=== PATIENT | female | born 1985 | race Caucasian/White ===

== ENCOUNTER → 2017-04-09 12:03 | Outpatient (CLI) | payer OTHER, SELFPAY ==
[2017-03-23 08:38] VITALS: BMI 21.1
--- NOTE | 2017-04-09 12:15 | HPBI_ITS ---
MAMMOGRAPHY - BILATERAL DIAGNOSTIC REASON FOR EXAM: Female, 31 years old. 2 year history of bilateral nipple discharge. PERTINENT HISTORY: Non-contributory. TECHNIQUE: Digital bilateral breast jacqueline (3D mammographic acquisition) in the CC and MLO projections. 2-D mediolateral oblique (MLO) and craniocaudad (CC) views of both breasts were obtained. CAD: Full Field Digital Mammography with Computer Added Detection was performed. COMPARISON: None. Baseline examination. FINDINGS: Breast Composition: The breasts are extremely dense, which lowers the sensitivity of mammography. There are no dominant masses or suspicious calcifications. No other significant abnormalities are identified. HPBI/DIAG MAMM W/CAD, BILAT IMPRESSION: Negative diagnostic mammogram. With the patient's history of bilateral breast discharge, ultrasound correlation is recommended. ASSESSMENT CATEGORY: BIRADS Category 0: Incomplete. Need additional imaging evaluation. A letter regarding these results will be sent to the patient by the facility within 30 days. Approximately 10% of breast cancers are not detected by mammography. A normal mammogram should not delay biopsy of a clinically suspicious abnormality. Electronically Signed: Elton Reeder MD at 13:14 EST Tel [phone], Service support ,
--- NOTE | 2017-04-09 13:30 | US_ITS ---
STUDY: ULTRASOUND BREAST - RIGHT REASON FOR EXAM: Female, 31 years old. Bilateral nipple discharge. TECHNIQUE: Axial and longitudinal images of the RIGHT breast were performed with a high resolution ultrasound transducer. COMPARISON: Comparison is made with prior mammogram done earlier today. FINDINGS: RIGHT Breast: There is a mild degree of retroareolar ductal dilatation. IMPRESSION: Mild degree of retroareolar ductal dilatation. ASSESSMENT CATEGORY: BIRADS Category 2: Benign. A letter regarding these results will be sent to the patient by the facility within 30 days. Electronically Signed: Elton Reeder MD at 14:16 EST Tel [phone], Service support , STUDY: ULTRASOUND BREAST - LEFT REASON FOR EXAM: Female, 31 years old. Bilateral breast discharge. TECHNIQUE: Axial and longitudinal images of the LEFT breast were performed with a high resolution ultrasound transducer. COMPARISON: Comparison is made with prior mammogram done earlier in the day. FINDINGS: LEFT Breast: Mild degree of retroareolar ductal dilatation. US/Breast Limited Unilateral IMPRESSION: Mild degree of the retroareolar ductal dilatation. ASSESSMENT CATEGORY: BIRADS Category 2: Benign. A letter regarding these results will be sent to the patient by the facility within 30 days. Electronically Signed: Elton Reeder MD at 14:16 EST Tel [phone], Service support ,
== END ==
PROVIDERS: Family Provider Family Medicine; PCP Family Medicine; Visit Provider Obstetrics & Gynecology
DX: O92.6 Galactorrhea (principal)
CPT/HCPCS: 76642; 77062; 77066; G0279

== ENCOUNTER → 2018-04-14 13:22 | Outpatient (CLI) | payer OTHER, SELFPAY ==
[2018-04-14 13:21] VITALS: BMI 21.1
[2018-04-14 14:38] LABS: Prolactin 19.6 ng/mL
[2018-04-14 14:54] LABS: Rubella IgG 70.2 IU/mL
== END ==
PROVIDERS: Family Provider Family Medicine; PCP Family Medicine; Referring Provider Obstetrics & Gynecology; Visit Provider Obstetrics & Gynecology
DX: N64.3 Galactorrhea not associated with childbirth (principal)
CPT/HCPCS: 36415; 84146; 86762

== ENCOUNTER → 2018-06-06 18:19 | Outpatient (CLI) | payer OTHER, SELFPAY ==
[2018-06-06 14:19] VITALS: BMI 21.1
[2018-06-09 15:43] LABS: HPV APTIMA, High Risk Negative (Negative)
== END ==
PROVIDERS: Family Provider Family Medicine; PCP Family Medicine; Referring Provider Obstetrics & Gynecology; Visit Provider Obstetrics & Gynecology
DX: Z12.4 Encounter for screening for malignant neoplasm of cervix (principal)
CPT/HCPCS: 87624; 88175; G0145

== ENCOUNTER → 2019-02-09 14:38 | Outpatient (CLI) | payer OTHER, SELFPAY ==
[2019-02-09 09:19] VITALS: BMI 21.1
[2019-02-09 21:27] LABS: Chlamydia Trachomatis by PCR Negative (Negative); Neisserai gonorrhoeae by PCR Negative (Negative); Probe Check PASS; Sample Adequacy Control PASS; Specimen Processing Control PASS
== END ==
PROVIDERS: Family Provider Family Medicine; PCP Family Medicine; Visit Provider Obstetrics & Gynecology
DX: Z34.90 Encounter for supervision of normal pregnancy, unspecified, unspecified trimester (principal)
CPT/HCPCS: 87086; 87491; 87591

== ENCOUNTER → 2019-02-21 11:02 | Outpatient (CLI) | payer OTHER, SELFPAY ==
[2019-02-09 09:19] VITALS: BMI 21.1
[2019-02-21 11:37] LABS: Absolute Lymphocyte Count 2.06 X10^3/uL (0.83-4.51); Absolute Neutrophil Count 6.4 X10^3/uL (2.0-7.7); Basophil# 0.02 X10^3/uL; Basophil% 0.2 % (0-1); Eosinophil# 0.05 X10^3/uL; Eosinophils% 0.6 % (0-5); Hematocrit 39.4 % (37-47); Hemoglobin 13.5 g/dL (12.0-15.0); Lymphocyte # 2.06 X10^3/ul (4.0); Lymphocyte % 22.8 % (19-41); Mean Corp Hgb Conc 34.3 g/dL (32-36); Mean Corpuscular Hgb 32.3 pg (27.0-32.0); Mean Corpuscular Volume 94.3 fL (81-99); Mean Platelet Vol. 9.6 fl (6.2-12.0); Monocyte# 0.51 X10^3/uL; Monocyte% 5.7 % (0-10); NRBC Flagged by Analyzer 0 % (0-5); Neutrophil # 6.35 X10^3/uL (2.7-7.7); Neutrophil % 70.4 % (47-70); Platelet Count 215 K/mm3 (150-450); RBC Distribution Width CV 12.5 % (11.6-14.6); RBC Distribution Width SD 43.8 fl (35.1-43.9); Red Blood Count 4.18 M/mm3 (4.2-5.4)
[2019-02-21 14:25] LABS: HIV - WCH Non-Reactive (Nonreactive); Hepatitis B Surface Antigen Non-Reactive (Nonreactive); Rubella IgG 59.8 IU/mL
[2019-02-23 00:56] LABS: Rapid Plasmin Reagin (RPR) NONREACTIVE (NONREACTIVE)
== END ==
PROVIDERS: Family Provider Family Medicine; PCP Family Medicine; Referring Provider Obstetrics & Gynecology; Visit Provider Obstetrics & Gynecology
DX: Z34.81 Encounter for supervision of other normal pregnancy, first trimester (principal)
CPT/HCPCS: 36415; 85025; 86592; 86703; 86762; 86850; 86900; 86901; 87340

== ENCOUNTER → 2019-06-23 09:57 | Outpatient (CLI) | payer OTHER, SELFPAY ==
[2019-06-01 14:31] VITALS: BMI 26.2
[2019-06-23 10:19] LABS: Absolute Lymphocyte Count 1.78 X10^3/uL (0.83-4.51); Absolute Neutrophil Count 8.6 X10^3/uL (2.0-7.7); Basophil# 0.02 X10^3/uL; Basophil% 0.2 % (0-1); Eosinophil# 0.03 X10^3/uL; Eosinophils% 0.3 % (0-5); Hematocrit 39.3 % (37-47); Lymphocyte # 1.78 X10^3/ul (4.0); Lymphocyte % 16.1 % (19-41); Mean Corp Hgb Conc 33.1 g/dL (32-36); Mean Corpuscular Hgb 33.4 pg (27.0-32.0); Mean Platelet Vol. 10.3 fl (6.2-12.0); Monocyte# 0.57 X10^3/uL; Monocyte% 5.2 % (0-10); NRBC Flagged by Analyzer 0 % (0-5); Neutrophil # 8.59 X10^3/uL (2.7-7.7); Neutrophil % 77.6 % (47-70); Platelet Count 182 K/mm3 (150-450); RBC Distribution Width CV 13.2 % (11.6-14.6); RBC Distribution Width SD 48.6 fl (35.1-43.9); Red Blood Count 3.89 M/mm3 (4.2-5.4); White Blood Count 11.1 K/mm3 (4.4-11.0)
[2019-06-23 10:26] LABS: Glucose Challenge Gest 1H 50g 115 mg/dL (70-140)
== END ==
PROVIDERS: PCP Family Medicine; Referring Provider Obstetrics & Gynecology; Visit Provider Obstetrics & Gynecology
DX: Z34.90 Encounter for supervision of normal pregnancy, unspecified, unspecified trimester (principal)
CPT/HCPCS: 36415; 82950; 85025

== ENCOUNTER → 2019-08-18 15:14 | Outpatient (CLI) | payer OTHER, SELFPAY ==
[2019-08-18 08:47] VITALS: BMI 21.1
== END ==
PROVIDERS: PCP Family Medicine; Referring Provider Obstetrics & Gynecology; Visit Provider Obstetrics & Gynecology
DX: Z3A.36 36 weeks gestation of pregnancy (principal)
CPT/HCPCS: 87081

== ENCOUNTER 2019-09-13 11:00 | Inpatient (IN) | payer OTHER, SELFPAY ==
[2019-06-23 10:43] VITALS: BMI 26.6
[2019-09-08 10:47] VITALS: BMI 21.1
[2019-09-13] VITALS (37 sets, daily range): BP systolic 88–125; BP diastolic 54–80; PULSE 73–109; TEMP 36.7–37.9; O2SAT 97–99; BMI 28.3
[2019-09-13] MEDS: Lactated Ringers 1,000 ML 50 ML IV (11:20)
[2019-09-13 11:30] LABS: Absolute Lymphocyte Count 2.32 X10^3/uL (0.83-4.51); Absolute Neutrophil Count 8.4 X10^3/uL (2.0-7.7); Basophil# 0.02 X10^3/uL; Basophil% 0.2 % (0-1); Eosinophil# 0.03 X10^3/uL; Eosinophils% 0.3 % (0-5); Hematocrit 44.5 % (37-47); Hemoglobin 15.2 g/dL (12.0-15.0); Lymphocyte # 2.32 X10^3/ul (4.0); Lymphocyte % 20.3 % (19-41); Mean Corp Hgb Conc 34.2 g/dL (32-36); Mean Corpuscular Hgb 34.2 pg (27.0-32.0); Mean Platelet Vol. 11.3 fl (6.2-12.0); Monocyte# 0.64 X10^3/uL; Monocyte% 5.6 % (0-10); NRBC Flagged by Analyzer 0 % (0-5); Neutrophil # 8.38 X10^3/uL (2.7-7.7); Neutrophil % 73.2 % (47-70); Platelet Count 143 K/mm3 (150-450); RBC Distribution Width CV 13.1 % (11.6-14.6); RBC Distribution Width SD 47.5 fl (35.1-43.9); Red Blood Count 4.45 M/mm3 (4.2-5.4); White Blood Count 11.4 K/mm3 (4.4-11.0)
[2019-09-13] MEDS: Lactated Ringers 500 ML 999 ML IV (16:15)
[2019-09-13] MEDS: fentaNYL-bupivacaine (epidural) 100 ML BAG EPIDURAL ×2 (17:32→21:41)
[2019-09-13] MEDS: Lactated Ringers 1,000 ML 200 ML IV ×2 (18:54→23:02)
--- NOTE | 2019-09-13 19:13 | PCM.HP.OB ---
- Problem List (1) Status: Acute Qualifiers: Comment: nipt low risk, carrier declined. afp declined. MFM Anatomy US normal (2) Supervision of normal Status: Acute Qualifiers: Comment: PRR DESTIN 09/10/19 boy Kasie Mohan (3) Vaginal bleeding Status: Acute History Date of Admission: 09/13/19 Final DESTIN: 09/10/19 Gestational age: 40 Weeks and 3 Days History of this : This is a 33 year-old, , at 40 weeks gestational age presents IAL with vaginal bleeding, made cervical change.she has had an uncomplicated Medical History: Medical History (Last Reviewed 09/08/19 @ 10:47 by Indira Montes) Anxiety F41.9 Surgical History: Surgical History (Last Reviewed 09/08/19 @ 10:47 by Indira Montes) History of wisdom tooth extraction, class II edentulism K08.492 Allergies amoxicillin Allergy (Mild, Verified 09/08/19 10:47) Other Home Medications: Home Medications vitamin#30 30 mg iron-10 mg iron-folic acid 1 mg-omg3 capsule cap PO cap 02/09/19 Smoking Status: Never smoker NST - FHR Rate Baby A Baseline: 140 Variability:: Moderate Accelerations:: 15 x 15 Decelerations:: None NST Reactive:: Yes FHR Category:: Category I Uterine Activity:: q 3-4 History Past Pregnancies: Past Pregnancies Delivery Date Name GA/ Weeks Outcome Route Wt Sex Labor Length Anesthesia Delivery Location Provider FOB Labs: Mom's Labs & Results 09/13/19 09/13/19 09/13/19 11:20 11:20 11:20 WBC 11.4 H RBC 4.45 Hgb 15.2 H Hct 44.5 MCV 100.0 H MCH 34.2 H MCHC 34.2 RDW Std Deviation 47.5 H RDW Coeff of Mahendra 13.1 Plt Count 143 L MPV 11.3 Immature Gran % (Auto) 0.400 Neut % (Auto) 73.2 H Lymph % (Auto) 20.3 Ward % (Auto) 5.6 Eos % (Auto) 0.3 Baso % (Auto) 0.2 Absolute Neuts (auto) 8.4 H Absolute Lymphs (auto) 2.32 Nucleated RBC % 0 COVID-19 (DYLAN) Not Detected Blood Type A POSITIVE Antibody Screen NEGATIVE Course Did the patient receive Yes care? Labs Blood Type: A RH: POSITIVE RPR/VDRL/Syphilis Nonreactive Rubella status Immune HbSAg Negative Date Done: 02/21/19 Chlamydia Negative Gonorrhea Negative HIV/AIDS Non-Reactive Group B Strep: Negative Current Obstetrical History Gestational Diabetes No Incompetent Cervix No Infertility No IUGR No Macrosomia No Hypertension/Pre-eclampsia No Placenta Previa/Abruption No PTL/PROM No Uterine anomaly No Oligohydramnios No Polyhydramnios No Multiple gestation No Past Medical History Asthma No Diabetes No Hypertension No Heart disease No Mitral valve prolapse No Neurologic/Seizure disorder/ No Migraines Kidney disease No Liver disease No Varicosities No Clotting disorders/Hx of DVT No Thyroid Dysfunction No Other medical diseases No Psychiatric disorders No Major trauma No Abnormal PAP smear No Sleep apnea No Mammogram in the last 2 years Yes Social History Marital Status: Alleged father Mohan Hx Smoking No Smoking Status Never smoker Expected Delivery Method: Spontaneous Vaginal Review of Systems Constitutional: Denies: Fever, Malaise Eyes: Denies: Blurred vision, Vision Change HEENT: Denies: Head Aches, Visual Changes Cardiovascular: Denies: Chest Pain, Palpitations Respiratory: Denies: Cough, Shortness of Breath, Wheezing Gastrointestinal: Denies: Abdominal Pain, Diarrhea, Nausea, Vomiting Genitourinary: Denies: Dysuria, Hematuria Musculoskeletal: Denies: Joint Pain, Muscle pain Skin: Denies: Lesions, Rash Neurological: Denies: Blurred vision, Focal weakness, Headaches Psychiatric: Denies: Anxiety, Depression Endocrine: Denies: Heat/ Cold Intolerance Hematologic/ Lymphatic: Denies: Easy Bruising, Easy Bleeding Physical Exam Vitals: Vital Signs Temp Pulse BP Pulse Ox 98.8 F 84 102/60 99 09/13/19 18:31 09/13/19 18:32 09/13/19 18:32 09/13/19 18:31 General: Alert, Cooperative, No apparent distress HEENT: Atraumatic, Normocephalic. Negative for: Thyromegaly, Lymphadenopathy Cardiovascular: Regular rate Lungs: Normal air movement Abdomen: Soft, Non Tender, Gravid Neurological: Deep Tendon Reflexes 2+/4 and Symmetrical, Neuro grossly intact. Negative for: Clonus REMODELER: Normal external genitalia. Negative for: Vulvar lesions Estimated gestational size: Appropriate for gestational size Presentation: Cephalic Cervix Dilation (cm): 4 Station: -1 Effacement (%): 80 Assessment/Plan All Active Problems (Last Reviewed 09/08/19 @ 10:47 by Indira Montes) Vaginal bleeding (Acute) (Acute) Supervision of normal (Acute) Adnexal mass (Resolved) Galactorrhea (Resolved) This is a 33 year-old, at 40 weeks gestational age presents IAL. Patient presents IAL, plan expectant management for , pitocin/AROM if needed. Pain management: Plans epidural. GBS neg. Management of any complications: None I have reviewed the [facility] and made any clinically relevant updates.
[2019-09-14] VITALS (25 sets, daily range): BP systolic 102–137; BP diastolic 51–79; PULSE 86–100; RESP 16; TEMP 36.7–37.8; O2SAT 93–99
--- NOTE | 2019-09-14 01:23 | PN_ITS ---
Progress Note Patient comfortable, 9 cm, sitting up in Chair current tracing: FHT: 130 Moderate variability reactive no decelerations category I tracing [place]: Q. 2-4 contractions reviewed tracing abnormalities since last note: No significant or repetitive decelerations A/P: Continue expectant management STROKE Vital Signs/Narrative: Vital Signs Temp Pulse BP Pulse Ox 09/14/19 00:16 92 118/59 L 09/13/19 23:59 96 88/54 L 09/13/19 23:58 98.7 F 98 09/13/19 22:48 99.2 F H 102 H 100/56 L 97 09/13/19 21:40 98.1 F 90 101/73 98
[2019-09-14] MEDS: fentaNYL-bupivacaine (epidural) 100 ML BAG EPIDURAL (01:48)
--- NOTE | 2019-09-14 02:25 | OP.PCM_ITS ---
Problem List (1) Status: Acute Qualifiers: Comment: nipt low risk, carrier declined. afp declined. MFM Anatomy US normal (2) Supervision of normal Status: Acute Qualifiers: Comment: PRR DESTIN 09/10/19 boy Kasie Mohan (3) Vaginal bleeding Status: Acute Vaginal Delivery Maternal Presentation: Active Labor 33-year-old G1, P0 at 40 weeks 3 days presents in active labor with vaginal bleeding Amniotic Membrane Rupture Type: Artificial Amniotic Fluid Description: Clear Final DESTIN: 09/10/19 Gestational age: 40 Weeks and 4 Days Date of Procedure: 09/14/19 Pre-Operative Diagnosis: Active labor Post-Operative Diagnosis: Same Surgery/ Procedure Performed: Spontaneous Vaginal Delivery Type of Anesthesia: Epidural Description of Procedure: Patient began pushing and delivered the head in the [ANNY] presentation. The head was delivered atraumatically [and a loose nuchal cord ?1 was identified and easily reduced over the 's head]. The anterior and posterior shoulders delivered without complication followed by the rest of the infant and the infant was placed on the maternal abdomen. Delayed cord clamping was employed for approximately 60 seconds. Cord was clamped and cut and gentle traction was applied to the cord and the placenta delivered spontaneously immediately following it was noted to be intact with three-vessel cord. The perineum and vagina were inspected and noted to have a second-degree perineal laceration that was repaired in the usual fashion with 3-0 Vicryl Rapide. EBL was 300 cc. Patient and tolerated delivery well. Placental Delivery Description: Spontaneous Placenta Disposition: [facility] Cord Vessel Description: 3 Vessels Cord Entanglement: Around neck x 1, loose Estimated Blood Loss: 300 Infant A gender: Male Episiotomy Description: None Laceration: Perineal Extension/lac, 2nd degree Medications given after delivery: IV Pitocin Complications: None Multi Select Codes - Urinary/Genital Urinary/Genital CPT Codes: 01788 Vaginal Delivery [facility]
[2019-09-14] MEDS: Lactated Ringers 1,000 ML 200 ML IV (03:59)
[2019-09-14] MEDS: Oxytocin 30 units/NS 500 ml 30 UNITS/500 ML IV.SOLN 334 UNITS IV (04:30)
[2019-09-14] MEDS: 0.9% Saline Lock 10 ML Syringe IV (06:56)
--- NOTE | 2019-09-14 07:30 | NURSING ---
[place] cut near delivery by dr opzo. 300 cc clear, yellow urine present in bag.
[2019-09-14] MEDS: Senna/Docusate Sodium 1 Tablet PO (14:16)
[2019-09-14] MEDS: Naproxen 250 MG Tablet 500 MG PO (17:35)
--- NOTE | 2019-09-14 17:45 | CASEMGMT ---
Social Work Labor and Delivery unit Social work consult received and noted. Chart reviewed. Maternal history of anxiety. Her mother baby is a first-time mother who delivered a baby today 09/14/2019. Plan: We will plan to see baby on 09/15/2019 for assessment, support, and provision resources. -TOBIAS Burnett, PLASTIC PANEL INSTALLER
[2019-09-15] VITALS (8 sets, daily range): BP systolic 100–116; BP diastolic 66–73; PULSE 77–90; RESP 16; TEMP 36.4–36.7; O2SAT 96–98
--- NOTE | 2019-09-15 09:36 | DCINST_ITS ---
Discharge Diet: No Restrictions Discharge Activity: Return to Normal Activity, May not drive while taking narcotic pain medications., May Shower May resume sexual activity in: 4-6 weeks Call your doctor if your incision/area has: Continuous Slow Oozing, Sudden Increased Bleeding, Increased Pain/ Swelling, Increased Redness, Foul Smelling Discharge Additional Instructions: If you experience any of the following, contact your healthcare provider. * Bleeding that soaks a pad every hour for 2 hours * Fever 100.4 or higher * Unrelieved incision or abdominal pain * Swelling, redness, discharge or bleeding from your incision or episiotomy site * Your incision begins to separate * Problems urinating (including inability to urinate or burning while urinating). * Visual changes * Severe headache * Flu-like symptoms * Pain or redness in one of both of your breasts * Pain, warmth, tenderness or swelling in your legs, especially the calf area * Frequent nausea and vomiting * Symptoms of depression or anxiety If you experience any of the following, call 911 or go to the nearest Emergency Room. * Chest pain * Problems breathing * Seizure activity * Partial or complete paralysis of a body part, slurred speech, weakness or drooping of the face, or a sudden inability to walk or hold your balance Allergies/Adverse Reactions: Allergies amoxicillin Allergy (Mild, Verified 09/08/19 10:47) Other Medications to take at Discharge vitamin#30 30 mg iron-10 mg iron-folic acid 1 mg-omg3 capsule cap PO cap 02/09/19 Please Follow Up With: Adela Snell MD - [phone] When: Call to make an appointment with your doctor in 6 weeks. If you had elevated Blood pressure or 4th degree laceration you will need to be seen in 2 weeks. Primary Care Physician: Anuja Curtis DO [Primary Care Provider] - Test Results: Test results from this visit will be discussed in further detail at your follow- up appointment, if applicable.
--- NOTE | 2019-09-15 09:36 | PCM.PN.OB ---
Patient Problems: Active and Suspected Problems (Last Reviewed 09/08/19 @ 10:47 by Indira Montes) Vaginal bleeding (Acute) Subjective: doing well no complaints pain controlled no CP SOB N V ambulating well tolerating po lochia moderate, going well - Physical Exam Vitals/I&O's: Vital Signs Temp Pulse Resp BP Pulse Ox 97.8 F 90 16 102/66 97 09/15/19 09:15 09/15/19 09:15 09/15/19 09:15 09/15/19 09:15 09/15/19 09:15 Oxygen Delivery Method Room Air Weight: 165 lb Body Mass Index (BMI) 28.3 Intake and Output for Last 24 Hours 09/13/19 09/14/19 09/15/19 23:59 23:59 23:59 Intake Total 1985.83 / 1985.83 2866.54 / 2866.54 Output Total 250 / 250 2700 / 2700 Balance 1735.83 / 1735.83 166.54 / 166.54 Current Medications Acetaminophen (Tylenol) 1,000 mg PO Q8H PRN PRN PRN Reason: Pain Score 1-3/10 Bisacodyl (Dulcolax) 10 mg RECTAL UD PRN PRN Reason: If no BM Dibucaine (Dibucaine) 1 applic TOPICAL TID PRN PRN; Protocol PRN Reason: Discomfort Hydrocortisone (Hytone) 1 applic TOPICAL TID PRN PRN; Protocol PRN Reason: Discomfort Methylergonovine Maleate (Methergine) 0.2 mg IM X1 PRN PRN Reason: Excess bleeding/uterine atony Naproxen (Naprosyn) 500 mg PO Q8H PRN PRN PRN Reason: Pain Score 1-3/10 Last Admin: 09/14/19 17:35 Dose: 500 mg Documented by: Ondansetron HCl (Zofran) 4 mg IV Q4H PRN PRN PRN Reason: Nausea Oxycodone HCl (Oxyir) 5 - 10 mg PO Q4H PRN PRN PRN Reason: Pain Score 4-10/10 Senna/Docusate Sodium (Senokot-S, Janie-Colace) 1 - 2 tablet PO DAILY PRN PRN PRN Reason: Constipation Last Admin: 09/14/19 14:16 Dose: 1 tablet Documented by: Simethicone (Mylicon) 80 mg PO PCHS PRN PRN Reason: Indigestion/Stomach pain Sodium Chloride () 5 - 15 ml IV UD PRN PRN Reason: SALINE FLUSH Last Admin: 09/14/19 06:56 Dose: 10 ml Documented by: Medical Necessity - Tobacco Use Smoking Status: Never smoker Assessment/Plan All Active Problems (Last Reviewed 09/08/19 @ 10:47 by Indira Montes) Vaginal bleeding (Acute) (Acute) Supervision of normal (Acute) Adnexal mass (Resolved) Galactorrhea (Resolved) s/p PPD # 1 1. routine post delivery care 2. breast feeding- support given 3. rh positive 4. rubella immune
--- NOTE | 2019-09-15 09:36 | PCM.DCVAG ---
Discharge Diet: No Restrictions Discharge Activity: Return to Normal Activity, May not drive while taking narcotic pain medications., May Shower May resume sexual activity in: 4-6 weeks Call your doctor if your incision/area has: Continuous Slow Oozing, Sudden Increased Bleeding, Increased Pain/ Swelling, Increased Redness, Foul Smelling Discharge Additional Instructions: If you experience any of the following, contact your healthcare provider. Bleeding that soaks a pad every hour for 2 hours Fever 100.4 or higher Unrelieved incision or abdominal pain Swelling, redness, discharge or bleeding from your incision or episiotomy site Your incision begins to separate Problems urinating (including inability to urinate or burning while urinating). Visual changes Severe headache Flu-like symptoms Pain or redness in one of both of your breasts Pain, warmth, tenderness or swelling in your legs, especially the calf area Frequent nausea and vomiting Symptoms of depression or anxiety If you experience any of the following, call 911 or go to the nearest Emergency Room. Chest pain Problems breathing Seizure activity Partial or complete paralysis of a body part, slurred speech, weakness or drooping of the face, or a sudden inability to walk or hold your balance Allergies/Adverse Reactions: Allergies amoxicillin Allergy (Mild, Verified 09/08/19 10:47) Other Medications to take at Discharge vitamin#30 30 mg iron-10 mg iron-folic acid 1 mg-omg3 capsule cap PO cap 02/09/19 Please Follow Up With: Adela Snell MD - [phone] When: Call to make an appointment with your doctor in 6 weeks. If you had elevated Blood pressure or 4th degree laceration you will need to be seen in 2 weeks. Primary Care Physician: Anuja Curtis DO [Primary Care Provider] - Test Results: Test results from this visit will be discussed in further detail at your follow-up appointment, if applicable.
--- NOTE | 2019-09-15 14:44 | CASEMGMT ---
Social Work Met with patient to follow up on hx of anxiety. Pt very open about past anxiety and reported to utilizing counseling prior, and finding it very beneficial to discuss feelings and get thoughts in order. Pt expressed recognizing any depression or anxiety to return to counseling. Discussed PPD/A not only affecting MOB but FOB as well. Provided resources for PPD/A, safe sleep, shaken baby, etc. Pt stated she was never on meds but PRN Xanax for travel. 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 Despite new job, pt is able to have full maternity leave and will return in the fall. /FOB has full-time job as well and is taking about 2 weeks paternity leave. Pt reports to no issues financially. Pt states has all equipment/needs for taking baby home. FOB: no issues reported. Great relationship. Safe at home. Support: Pt reports to having a family in town, both MOB and FOB parents are very involved and will be eager to assist as needed. Also well as family to assist. Provided resources for PPD/A, safe sleep, shaken baby, etc. Educated to continued assistance if needed. Pt expressed no issues, questions or concerns. Pt very pleasant, happy, friendly, and excited to go home and begin parenthood. CALIXTO MoserW
--- NOTE | 2019-09-19 12:19 | NURSING ---
Mother doing well on follow up phone call. Baby nursing well. Really like Misti Merritt
== END 2019-09-15 16:25 | disposition home or self-care (01) | DRG 807 ==
LOC: OBT 11:03 → WP 11:03
PROVIDERS: Admitting Provider Obstetrics & Gynecology; PCP Family Medicine; Referring Provider Obstetrics & Gynecology; Visit Provider Obstetrics & Gynecology
DX: O67.9 Intrapartum hemorrhage, unspecified (principal); O69.81X0 Labor and delivery complicated by cord around neck, without compression, not applicable or unspecified; O70.1 Second degree perineal laceration during delivery; Z3A.40 40 weeks gestation of pregnancy; Z37.0 Single live birth
CPT/HCPCS: 59025; 59050; 85025; 86850; 86900; 86901; 87635; 99218; G2023; J7120; A4216; G0378; U0003

== ENCOUNTER → 2019-09-29 16:26 | Outpatient (CLI) | payer OTHER, SELFPAY ==
[2019-09-29 14:12] VITALS: BMI 28.3
== END ==
PROVIDERS: PCP Family Medicine; Referring Provider Obstetrics & Gynecology; Visit Provider Obstetrics & Gynecology
DX: N39.0 Urinary tract infection, site not specified (principal)
CPT/HCPCS: 87086; 87088

== ENCOUNTER → 2021-09-04 | Outpatient (CLI) | payer OTHER, SELFPAY ==
[2021-09-04 13:56] LABS: hCG Titer Quant., Serum < 1 mIU/mL (1-3)
== END | disposition home or self-care (01) ==
LOC: LAB 12:55
PROVIDERS: Referring Provider Nurse Practitioner Women's Health; Visit Provider Nurse Practitioner Women's Health
DX: N91.2 Amenorrhea, unspecified (principal)
CPT/HCPCS: 36415; 84702

== ENCOUNTER → 2021-10-14 | Outpatient (CLI) | payer OTHER, SELFPAY ==
[2021-10-14 09:48] LABS: Prolactin 7.3 ng/mL; Thyroid Stim Hormone (TSH) 1.29 uIU/mL (0.358-3.74)
[2021-10-14 10:08] LABS: NATERA MAILED SPECIMEN
[2021-10-21 14:09] LABS: Testosterone, % Free 1.61 % (0.50-2.80); Testosterone, Total 6 ng/dL (8-60)
[2021-10-22 18:02] LABS: DHEA Sulfate 76.7 ug/dL (57.3-279.2)
== END | disposition home or self-care (01) ==
LOC: PAVLAB 08:30
PROVIDERS: Referring Provider Obstetrics & Gynecology; Visit Provider Obstetrics & Gynecology
DX: N92.6 Irregular menstruation, unspecified (principal)
CPT/HCPCS: 36415; 82627; 84146; 84402; 84403; 84443; 82626

== ENCOUNTER → 2021-10-27 | Outpatient (CLI) | payer OTHER, SELFPAY ==
--- NOTE | 2021-10-27 16:04 | US_ITS ---
STUDY: ULTRASOUND OF THE FEMALE PELVIS - COMPLETE REASON FOR EXAM: Female, 36 years old. irregular menses LMP: TECHNIQUE: TECHNICAL QUALITY: Adequate. COMPARISON: None. FINDINGS: The uterus is anteverted and is in a midline position. The uterus measures 8.3 x 5.2 x 4.1 cm. Normal uterine cervix. The endometrium measures 5.6 mm in thickness, and is . There is no demonstrated endometrial mass. There is no demonstrated myometrial mass. I.U.D. - The patient does not have an I.U.D. The right ovary is visualized. The right ovary measures 3.8 x 2.7 x 2.8 cm. cm. There is a simple cyst in the right ovary 2.1 x 1.7 x 1.9 cm. Follicular cysts are seen at the periphery of the right ovary.. There is no visualized right adnexal mass or complex lesion. There is normal arterial and normal venous vascularity. The left ovary is visualized. The left ovary measures 2.7 x 2.4 x 2.4 cm with multiple peripheral follicular cysts. cm. There is no left ovarian cyst or ovarian mass. There is no visualized left adnexal mass or complex lesion. There is normal arterial and normal venous vascularity. There is no fluid in the cul-de-sac. The pre void volume of the bladder was 390 ml. The post void volume of the bladder was ml. Polycystic ovary disease: Yes. See above discussion. US/Pelvic (Non ) IMPRESSION: Multiple peripheral follicular cysts both ovaries consistent with polycystic ovarian syndrome. Simple cyst right ovary 2.1 x 1.7 x 0.9 cm. Electronically Signed: Bienvenido Duenas MD, DAX at 17:05 EDT ,
--- NOTE | 2021-10-27 16:04 | US_ITS ---
STUDY: ULTRASOUND OF THE FEMALE PELVIS - COMPLETE REASON FOR EXAM: Female, 36 years old. irregular menses LMP: TECHNIQUE: TECHNICAL QUALITY: Adequate. COMPARISON: None. FINDINGS: The uterus is anteverted and is in a midline position. The uterus measures 8.3 x 5.2 x 4.1 cm. Normal uterine cervix. The endometrium measures 5.6 mm in thickness, and is . There is no demonstrated endometrial mass. There is no demonstrated myometrial mass. I.U.D. - The patient does not have an I.U.D. The right ovary is visualized. The right ovary measures 3.8 x 2.7 x 2.8 cm. cm. There is a simple cyst in the right ovary 2.1 x 1.7 x 1.9 cm. Follicular cysts are seen at the periphery of the right ovary.. There is no visualized right adnexal mass or complex lesion. There is normal arterial and normal venous vascularity. The left ovary is visualized. The left ovary measures 2.7 x 2.4 x 2.4 cm with multiple peripheral follicular cysts. cm. There is no left ovarian cyst or ovarian mass. There is no visualized left adnexal mass or complex lesion. There is normal arterial and normal venous vascularity. There is no fluid in the cul-de-sac. The pre void volume of the bladder was 390 ml. The post void volume of the bladder was ml. Polycystic ovary disease: Yes. See above discussion. US/Transvaginal Non- IMPRESSION: Multiple peripheral follicular cysts both ovaries consistent with polycystic ovarian syndrome. Simple cyst right ovary 2.1 x 1.7 x 0.9 cm. Electronically Signed: Bienvenido Duenas MD, DAX at 17:05 EDT ,
== END | disposition home or self-care (01) ==
PROVIDERS: Visit Provider Obstetrics & Gynecology
DX: N92.6 Irregular menstruation, unspecified (principal)
CPT/HCPCS: 76830; 76856

== ENCOUNTER → 2021-12-24 | Outpatient (CLI) | payer OTHER, SELFPAY ==
[2021-12-24 11:27] LABS: hCG Titer Quant., Serum 1851 mIU/mL (1-3)
== END | disposition home or self-care (01) ==
PROVIDERS: Referring Provider Obstetrics & Gynecology; Visit Provider Obstetrics & Gynecology
DX: N91.2 Amenorrhea, unspecified (principal)
CPT/HCPCS: 36415; 84702

== ENCOUNTER → 2021-12-26 | Outpatient (CLI) | payer OTHER, SELFPAY ==
[2021-12-26 11:23] LABS: hCG Titer Quant., Serum 4090 mIU/mL (1-3)
== END | disposition home or self-care (01) ==
LOC: LAB 09:42
PROVIDERS: Referring Provider Obstetrics & Gynecology; Visit Provider Obstetrics & Gynecology
DX: N91.2 Amenorrhea, unspecified (principal)
CPT/HCPCS: 36415; 84702

== ENCOUNTER 2022-02-03 12:17 | Day surgery (SDC) | payer OTHER, SELFPAY ==
[2022-02-03] VITALS (7 sets, daily range): BP systolic 107–118; BP diastolic 70–84; PULSE 78–98; RESP 16–18; TEMP 36.7–37.7; O2SAT 96–100; BMI 22.6
[2022-02-03] MEDS: Lactated Ringers 1,000 ML 15 ML IV (13:57)
--- NOTE | 2022-02-03 14:00 | POC_PTH ---
PATIENT: MARCEL MONSALVE LOC: [facility] [place][id number] AGE/SX: 36/F ROOM: RE02/03/[address]: Dr. Sabine Perla DO : 1985 BED: DIS: 02/03/2022 SPEC #: [id number] RECD: 02/03/22 18:00 STATUS: GRAHAM SHAVON #: [id number] JEANA: 02/03/22 14:[address]: Sabine Perla DEPT: SURGICAL PATHOLOGY RECD BY: Maryanne Chin ENTERED: 02/04/22 07:49 SP TYPE: PROD CONC OTHR DR: No Primary Care Phys Tissues: Product of conception, NOS Procedures: Surgery Specimen Level IV HEADER OPERATION: Suction dilation and curettage PRE-OP DIAGNOSIS: Missed TISSUE SUBMITTED: Products of conception for Anora testing MICROSCOPIC DIAGNOSIS Products of conception: Decid[place], gestational endometrium and immature chorionic villi (products of conception), clinically missed . See comment. SJ:edmar 02/05/2022 COMMENT The results of Anora study will be reported as an addendum. MICROSCOPIC DESCRIPTION Slides are reviewed. GROSS DESCRIPTION Received fresh for Anora study labeled with the patient's name is a specimen designated products of conception. The specimen consists of multiple irregular fragments of pink soft tissue that in aggregate measure 7 x 6 x 2 cm. tissue is not identified. Lace Stripper tissue is submitted for Anora study. Lace Stripper tissue is also submitted in two cassettes. / SHARRI:edmar 02/04/2022 TC:5 CPT: 61173
[2022-02-03 14:43] LABS: Hemoglobin 13.9 g/dL (12.0-15.0); Mean Corp Hgb Conc 34.8 g/dL (32-36); Mean Corpuscular Hgb 32.9 pg (27.0-32.0); Mean Corpuscular Volume 94.6 fL (81-99); Mean Platelet Vol. 9.3 fl (6.2-12.0); Platelet Count 238 K/mm3 (150-450); RBC Distribution Width CV 12.5 % (11.6-14.6); RBC Distribution Width SD 43.5 fl (35.1-43.9); Red Blood Count 4.23 M/mm3 (4.2-5.4); White Blood Count 8.5 K/mm3 (4.4-11.0)
[2022-02-03] MEDS: Doxycycline 100 MG CAPSULE PO (16:27)
--- NOTE | 2022-02-03 16:54 | HP.PCM_ITS ---
History and Physical Date of Admission: 02/03/22 Intake Vital Signs ? 01/29/2215:00 01/29/2215:03 Height 5 ft 4 in ? Weight: 137 lb 4 oz ? BMI 23.6 ? BP 120/78 ? Intake Visit Reasons:?NOB? 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 1 mg-dha 300 mg capsule (PNV-DHA) cap PO 01/20/22 [History Confirmed 01/20/22] Last Menstrual Period: 11/19/21 Zika: Zika virus screening: Negative : No PFSH PFSH Medical History?(Updated 01/29/22 @ 16:[address] Sabine Perla, DO) Anxiety Surgical History? History of wisdom tooth extraction, class II edentulism Family History? Father Heart disease Social History? adopted:? No household members:? spouse housing:? house number of children:? 1 current occupational status:? 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 No pets and animals:? Yes pets and animals: dog(s) history of recent travel:? Yes (- November) out of state: Yes out of country: No sexually active:? Yes Smoking Status:? Never smoker alcohol intake:? never substance use type:? does not use well-balanced diet:? daily or most days caffeine:? Yes Type: coffee Number of servings: 1 eating out:? 1-3 times/week during the past year weight has:? remained stable what type of physical activity do you participate in:? none martha/quaker:? Orthodox seatbelt use:? always do you feel safe at home:? Yes additional social history:? [employer] History ? ? ? 2 ? Elective abortions ? Hx Para ? ? ? 1 ? Spontaneous abortions ? Hx # Term Pregnancies ? Ectopic pregnancies ? Hx # Pregnancies ? Multiple births ? D ? # of living children ? ? ? 1 Past Pregnancies Del. Date Name GA/Weeks Outcome Route Bth Weight Gen Labor Lgth Anesthesia Del Locatn Provider FOB 09/14/19 Kasie 40 live - full term NS VD ? Male ? ? [facility] Dr. Adela Preston Delivery Date: 09/14/19? Last Updated by: Mary Murillo ? ? ? Vaginal bleeding, IOL HPI NOB? LMP 11/19 Details: MARCEL MONSALVE is a 36 year old who presents for New OB visit. OB Visit DESTIN Calculator ? Estimated Delivery Date Method Current WG Current Estimate 08/26/22 LMP (Certain) 10w 1d Comments: HIV: Urine Culture: Sequential Screen: NIPT Screen: Estimated Due Date: 08/26/22 Menstrual History Last Menstrual Period: 11/19/21 Antepartum Record Genetic Screening: Congenital Heart Defect: Other, Neural Tube Defect: Other, Hemoglobinopathy Or Carrier: Other, Cystic Fibrosis: Other, Chromosome Abnormality: Other, Archie-Sachs: Other, Hemophilia: Other, Intellectual Disability/Autism: Other, Recurrent Loss/Stillbirth: Other, Other Structural Defect: Other, Other Genetic Disease: Other and Maternal Metabolic Disorder: Other Infection History: Live with someone with TB or Exposed to TB: No, Patient or Partner has history of Genital Herpes: No, Rash or Viral illness since last mentrual period: No, Prior GBS-Infected child: No, History of STD: No, HIV Infection: No, History of Hepatitis: No, Recent travel outside of [place]: No, Concern for hepatitis exposure: No and Varicella immune: Yes (immune) ACOG First Trimester First Trimester: Desire for , Alcohol, Tobacco Cessation, Illicit/Recreational Drug/Substance Use, Intimate Partner Violence, Barriers to care, Unstable Housing, Communication Barriers, Environmental/Work Hazards, Anticipated Course of Care, Toxoplasmosis Precations, Use of Any medications, Sexual activity, Exercise, Dental Care, Sauna/Hot tub use, Seat Belt use, Childbirth classes/Hospital facilities, Travel, Indications for Ultrasound and Screening for Aneuploidy; Discussed ROS Const All systems reviewed & are unremarkable except as noted in H Resp Reports system reviewed and no additional complaints, except as documented and Denies cough GI Reports as per HPI Psych Reports system reviewed and no additional complaints, except as documented Exam Const General: cooperative, healthy appearing, comfortable and no acute distress Resp Effort & Inspection: normal respiratory effort General: bimanual renal exam normal bilaterally External Female Exam: normal appearance of the urethra Urethra: normal appearance of the urethra Speculum Exam - Vagina: normal appearance of the vagina Speculum Exam - Cervix: normal appearance of the cervix Bimanual Exam- Adnexa, other: normal adnexae and normal Pelvic Support: normal Other: ultrasound shows a 7 week CRL without heart beat. Skin General: no rashes or lesions noted Psych Appearance: grossly normal Speech and Movement: speech and movement normal Coding Level of Care Code Off vis,est,level 4 Diagnoses Missed ? O02.1 Assessment and Plan Assessment and Plan (1) Missed : ?Status:?Acute ?Plan: pt has a 7 week missed . She would like to proceed with a D&C with Anora testing at next available opening. 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 is currently closed. After discussing the patient's diagnosis and treatment plan options, patient wishes to proceed with surgical management.? I have discussed with the patient the risks, benefits, and alternatives of the procedure which include but are not limited to risks of anesthesia, bleeding, infection, possible damage to bowel, bladder, or surrounding vasculature which could lead to additional surgery to evaluate any complications.? Patient agrees to procedure and wishes to proceed.? ACOG/uptodate references given for additional information regarding procedure.? bedside ultrasound performed prior to procedure for patient reassurance. there is a 7week 4 day pole without heart tones once again. UPDATE- I have seen the patient and performed any clinically relevant updates to the history and physical exam. Sabine Perla,
--- NOTE | 2022-02-03 16:55 | DCINST_ITS ---
Discharge Instructions Diet Discharge Diet: No restrictions Activity Discharge Activity: Return to Normal Activity, May Shower and May Take a Tub Bath (after 1 week) May resume sexual activity in: 1-2 weeks Weight Bearing Status: Weight bearing as tolerated Lifting Restrictions: none Dressing / Incision Call your doctor if you observe: Fever of 101 or Higher, Using more than 1 pad per hour, Shortness of breath and Uncontrolled pain Follow Up Care Please Follow Up With: Sabine Perla DO When: Call [phone] to schedule appointment. Test Results: Test results from this visit will be discussed in further detail at your follow- up appointment, if applicable. Discharge Plan Admission Primary Reason for Your Visit: suction dilation and curettage Attending Provider: Sabine Perla Primary Care Provider: Care Physician,Anais Primary Discharge Orders/Prescriptions Prescriptions: New oxycodone-acetaminophen [Percocet] 5-325 mg tablet 1 tab PO Q4H PRN (Reason: pain) 3 Days Qty: 10 0RF naproxen 500 mg tablet 500 mg PO BID PRN PRN (Reason: Pain) Qty: 30 0RF Continued PNV-DHA 27 mg iron-1 mg -300 mg capsule 1 cap PO DAILY Referrals / Follow Up: Care Physician,No Primary [Primary Care Provider] - Disposition Disposition (needs filled in before D/C Order can be placed): Home, Self Care
--- NOTE | 2022-02-03 17:15 | PCM.OP.BLANK ---
Problems Associated Problem List Diagnoses (1) Missed : Operative Report Date of Procedure: 02/03/22 Pre-operative diagnosis: 7week 4 day missed post-operative diagnosis: 7 week 4 day missed surgeon: Dr. Sabine Perla DO Anesthesia: mac/local ebl:50cc urine output: 100cc Procedure details: Patient was taken to the operating room and placed under MAC local anesthesia. She was prepped and draped in the normal sterile fashion the dorsal lithotomy position. Bladder was drained of clear urine and anterior lip of the cervix was grasped and the uterus sounded to 10cm. Cervix was progressively dilated to allow passage of a 7 curved suction curette. Progressive passes were made removing the retained products of conception without complication. Sharp curettage confirmed complete removal of the retained products. All instruments were removed from the vagina and excellent hemostasis was noted and the patient was taken to recovery in stable condition. Multi Select Codes Urinary/Genital Urinary/Genital CPT Codes: 55259 Surg Trtmt missed Ab 1TM
[2022-02-03] MEDS: Lidocaine 1% (20 ml mdv) 20 ML Vial (17:40)
== END 2022-02-03 19:22 | disposition home or self-care (01) ==
LOC: SDC 12:18 → AC 12:20
PROVIDERS: Obstetrics & Gynecology; Referring Provider Obstetrics & Gynecology; Visit Provider Obstetrics & Gynecology
PROC: (CPT 59820; principal; 2022-02-03 13:45)
DX: O02.1 Missed abortion (principal)
CPT/HCPCS: 59820; 01965; 85027; 86850; 86900; 86901; 88305; J7120; J2405

== ENCOUNTER → 2022-05-13 | Outpatient (CLI) | payer OTHER, SELFPAY ==
[2022-05-13 16:45] LABS: hCG Titer Quant., Serum 2024 mIU/mL (1-3)
== END | disposition home or self-care (01) ==
LOC: LAB 13:37
PROVIDERS: Referring Provider Obstetrics & Gynecology; Visit Provider Obstetrics & Gynecology
DX: O09.90 Supervision of high risk pregnancy, unspecified, unspecified trimester (principal); Z87.59 Personal history of other complications of pregnancy, childbirth and the puerperium
CPT/HCPCS: 36415; 84702

== ENCOUNTER → 2022-05-15 | Outpatient (CLI) | payer OTHER, SELFPAY ==
[2022-05-15 11:05] LABS: hCG Titer Quant., Serum 4350 mIU/mL (1-3)
== END | disposition home or self-care (01) ==
LOC: LAB 09:54
PROVIDERS: Referring Provider Obstetrics & Gynecology; Visit Provider Obstetrics & Gynecology
DX: O09.90 Supervision of high risk pregnancy, unspecified, unspecified trimester (principal); Z87.59 Personal history of other complications of pregnancy, childbirth and the puerperium
CPT/HCPCS: 36415; 84702

== ENCOUNTER → 2022-05-20 | Outpatient (CLI) | payer OTHER, SELFPAY ==
--- NOTE | 2022-05-20 10:03 | US_ITS ---
STUDY: FIRST TRIMESTER OBSTETRICAL ULTRASOUND REASON FOR EXAM: Female, 36 years old viability -- Please schedule early next week() -- LMP 04/05/2022 LMP: April 05, 2022. TECHNIQUE: Transvaginal TECHNICAL QUALITY: Adequate. PRIOR ULTRASOUND: None. FINDINGS: There is visualization of a single gestational sac in a normal intrauterine position. The mean sac diameter (MSD) measures 13 mm, indicating an estimated gestational age (EGA) of 6 weeks, 1 days. The gestational sac shape is within normal limits. There is a visualized yolk sac. The yolk sac measures 3 mm. The placenta is non-visualized. There is no demonstrated embryo ( pole). The estimated gestation age (EGA) by LMP is 6 weeks, 3 days. The estimated date of delivery (DESTIN) by LMP is January 10, 2023.. The estimated gestation age (EGA) by US is 6 weeks, 1 days. The estimated date of delivery (DESTIN) by US is January 12, 2023. The uterus measures 9.9 cm x 6.9 cm x 4.7 cm. There is no demonstrated uterine fibroid. The cervix is closed. The right ovary measures 4.2 cm x 4.1 cm x 3.1 cm. A right ovarian cyst is seen measuring 2 cm x 1.6 cm x 1.9 cm. There is no visualized right adnexal mass or complex lesion. The left ovary measures 2.7 cm x 2.7 cm x 1.8 cm. There is no left ovarian cyst. There is no visualized left adnexal mass or complex lesion. There is no fluid in the cul de sac. US/Transvaginal w/Preg US IMPRESSION: Intrauterine gestational sac suggestive of a 6 week 1 day gestation. Follow-up is recommended. Electronically Signed: Elton Reeder MD at 14:01 EDT ,
== END | disposition home or self-care (01) ==
LOC: US 10:03
PROVIDERS: Referring Provider Obstetrics & Gynecology; Visit Provider Obstetrics & Gynecology
DX: O36.80X0 Pregnancy with inconclusive fetal viability, not applicable or unspecified (principal); Z87.59 Personal history of other complications of pregnancy, childbirth and the puerperium
CPT/HCPCS: 76817

== ENCOUNTER → 2022-05-27 | Outpatient (CLI) | payer OTHER, SELFPAY ==
--- NOTE | 2022-05-27 15:16 | US_ITS ---
INDICATION: viability EXAMINATION: Ultrasound US OB Transvaginal TECHNIQUE: Transabdominal pelvic ultrasound was performed. Grayscale, spectral waveform, and color flow Doppler evaluation of the adnexa. COMPARISON: May 20, 2022. LMP: [04/05/2022 correlating with 7 weeks 3 days gestation and estimated delivery date January 10, 2023 Beta-hCG: Unknown FINDINGS: UTERUS: Anteverted 10.5 x 7.3 x 6.0 cm with unremarkable myometrium. Single fundal gestational sac normal shape and qualitatively normal amniotic fluid. No evidence of subchorionic hemorrhage. Placenta not yet developed due to early gestational age. Single mildly irregular 5 mm yolk sac. Single pole. 0.69 cm correlating with 6 weeks 5 days gestation and estimated delivery date January 15, 2023. heart rate 123 bpm. RIGHT OVARY: 4.0 x 2.9 x 2.9 cm with 2.1 cm anechoic luteal cyst and color vascular flow.. LEFT OVARY: 2.8 x 1.9 x 2.0 cm. Normal parenchymal appearance and color vascular flow.. FREE FLUID: None. US/Transvaginal w/Preg US IMPRESSION: Single live intrauterine with normal heart rate. Estimated gestational age is concordant with provided dating. Electronically Signed: Ganga Kulkarni MD at 8:16 EDT ,
== END | disposition home or self-care (01) ==
LOC: US 15:15
PROVIDERS: Referring Provider Obstetrics & Gynecology; Visit Provider Obstetrics & Gynecology
DX: O36.80X0 Pregnancy with inconclusive fetal viability, not applicable or unspecified (principal); Z87.59 Personal history of other complications of pregnancy, childbirth and the puerperium
CPT/HCPCS: 76817

== ENCOUNTER → 2022-05-28 | Outpatient (CLI) | payer OTHER, SELFPAY ==
[2022-06-01 06:06] LABS: Chlamydia By Nucleic Acid AMP Negative (Negative)
[2022-06-02 11:11] LABS: Gonococcus By Nucleic Acid AMP Negative (Negative)
== END | disposition home or self-care (01) ==
LOC: LABSPEC 13:00
PROVIDERS: Referring Provider Obstetrics & Gynecology; Visit Provider Obstetrics & Gynecology
DX: O09.521 Supervision of elderly multigravida, first trimester (principal)
CPT/HCPCS: 87086; 87491; 87591

== ENCOUNTER → 2022-06-01 | Outpatient (CLI) | payer OTHER, SELFPAY | END | disposition home or self-care (01) | LOC: LAB 14:52 | PROVIDERS: Obstetrics & Gynecology; Referring Provider Obstetrics & Gynecology; Visit Provider Obstetrics & Gynecology | DX: O20.0 Threatened abortion (principal) | CPT/HCPCS: 36415; 84702 ==

== ENCOUNTER → 2022-06-03 | Outpatient (CLI) | payer OTHER, SELFPAY ==
--- NOTE | 2022-06-03 07:58 | US_ITS ---
STUDY: FIRST TRIMESTER OBSTETRICAL ULTRASOUND REASON FOR EXAM: Female, 36 years old threatened LMP: April 05, 2022 TECHNIQUE: Transvaginal TECHNICAL QUALITY: Adequate. PRIOR ULTRASOUND: Comparison is made with prior examination dated May 27, 2022. FINDINGS: There is visualization of a single gestational sac in a normal intrauterine position. The mean sac diameter (MSD) measures 2.92 cm, indicating an estimated gestational age (EGA) of 8 weeks, 0 days. The gestational sac shape is within normal limits. There is a visualized yolk sac. The yolk sac measures 4.4 mm. The placenta is non-visualized. There is visualization of a live embryo. The crown-rump length (CRL) measures 1.43 cm, indicating an estimated gestational age (EGA) of 7 weeks, 5 days. There is demonstrated cardiac activity with a heart rate of 152 bpm. The estimated gestation age (EGA) by LMP is 8 weeks, 3 days. The estimated date of delivery (DESTIN) by LMP is January 10, 2023. The estimated gestation age (EGA) by US is 7 weeks, 6 days. The estimated date of delivery (DESTIN) by US is January 14, 2023. The uterus measures 11.9 cm x 5.7 cm x 8.3 cm. There is no demonstrated uterine fibroid. The cervix is closed. The right ovary measures 3.5 cm x 3.2 cm x 3.2 cm. There is a 2.1 cm x 1.9 cm by 1.7 cm cyst. There is no visualized right adnexal mass or complex lesion. The left ovary measures 3.1 cm x 2.2 cm x 2.1 cm. There is no left ovarian cyst. There is no visualized left adnexal mass or complex lesion. There is no fluid in the cul de sac. US/Transvaginal w/Preg US IMPRESSION: Single live intrauterine gestation with a mean gestational age of 7 weeks and 6 days. 2.1 cm x 1.9 cm x 1.7 cm right ovarian cyst. Electronically Signed: Elton Reeder MD at 9:07 EDT ,
[2022-06-03 09:04] LABS: hCG Titer Quant., Serum 105992 mIU/mL (1-3)
== END | disposition home or self-care (01) ==
PROVIDERS: Referring Provider Obstetrics & Gynecology; Visit Provider Obstetrics & Gynecology
DX: O20.0 Threatened abortion (principal)
CPT/HCPCS: 36415; 76817; 84702

== ENCOUNTER → 2022-06-19 | Outpatient (CLI) | payer OTHER, SELFPAY ==
[2022-06-19 15:06] LABS: Absolute Lymphocyte Count 2.49 X10^3/uL (0.83-4.51); Basophil# 0.02 X10^3/uL; Basophil% 0.2 % (0-1); Eosinophil# 0.06 X10^3/uL; Eosinophils% 0.6 % (0-5); Hematocrit 37.9 % (37-47); Hemoglobin 12.9 g/dL (12.0-15.0); Lymphocyte # 2.49 X10^3/ul (0.83-4.51); Lymphocyte % 24.7 % (19-41); Mean Corpuscular Hgb 32.1 pg (27.0-32.0); Mean Corpuscular Volume 94.3 fL (81-99); Mean Platelet Vol. 9.8 fl (6.2-12.0); Monocyte# 0.55 X10^3/uL; Monocyte% 5.4 % (0-10); NRBC Flagged by Analyzer 0 % (0-5); Neutrophil # 6.96 X10^3/uL (2.7-7.7); Neutrophil % 68.9 % (47-70); Platelet Count 210 K/mm3 (150-450); RBC Distribution Width CV 12.5 % (11.6-14.6); Red Blood Count 4.02 M/mm3 (4.2-5.4); White Blood Count 10.1 K/mm3 (4.4-11.0)
[2022-06-19 15:45] LABS: NATERA MAILED SPECIMEN
[2022-06-19 16:59] LABS: HIV - WCH Non-Reactive (Nonreactive); Hepatitis B Surface Antigen Non-Reactive (Nonreactive); Hepatitis C Antibody Non-Reactive (Nonreactive); Rubella IgG Reactive (Nonreactive); Syphilis Antibodies Non-reactive
== END | disposition home or self-care (01) ==
LOC: LAB 14:39
PROVIDERS: Referring Provider Obstetrics & Gynecology; Visit Provider Obstetrics & Gynecology
DX: O09.521 Supervision of elderly multigravida, first trimester (principal)
CPT/HCPCS: 36415; 85025; 86703; 86762; 86780; 86803; 86850; 86900; 86901; 87340

== ENCOUNTER → 2022-10-26 | Outpatient (CLI) | payer OTHER, SELFPAY ==
[2022-10-26 09:00] LABS: Absolute Lymphocyte Count 1.55 X10^3/uL (0.83-4.51); Absolute Neutrophil Count 8.4 X10^3/uL (2.0-7.7); Basophil# 0.02 X10^3/uL; Basophil% 0.2 % (0-1); Eosinophil# 0.05 X10^3/uL; Eosinophils% 0.5 % (0-5); Hematocrit 36.6 % (37-47); Lymphocyte # 1.55 X10^3/ul (0.83-4.51); Lymphocyte % 14.7 % (19-41); Mean Corp Hgb Conc 32.8 g/dL (32-36); Mean Corpuscular Volume 103.7 fL (81-99); Mean Platelet Vol. 10.2 fl (6.2-12.0); Monocyte# 0.48 X10^3/uL; Monocyte% 4.5 % (0-10); NRBC Flagged by Analyzer 0 % (0-5); Neutrophil # 8.39 X10^3/uL (2.7-7.7); Neutrophil % 79.4 % (47-70); Platelet Count 181 K/mm3 (150-450); RBC Distribution Width CV 13.8 % (11.6-14.6); RBC Distribution Width SD 52.5 fl (35.1-43.9); Red Blood Count 3.53 M/mm3 (4.2-5.4); White Blood Count 10.6 K/mm3 (4.4-11.0)
[2022-10-26 09:07] LABS: Glucose Challenge Gest 1H 50g 115 mg/dL (70-140)
[2022-10-26 13:22] LABS: HIV - WCH Non-Reactive (Nonreactive); Syphilis Antibodies Non-reactive
== END | disposition home or self-care (01) ==
LOC: PAVLAB 08:31
PROVIDERS: Referring Provider Registered Nurse; Visit Provider Registered Nurse
DX: O09.521 Supervision of elderly multigravida, first trimester (principal); Z3A.00 Weeks of gestation of pregnancy not specified
CPT/HCPCS: 36415; 82950; 85025; 86703; 86780

== ENCOUNTER → 2022-12-18 | Outpatient (CLI) | payer OTHER, SELFPAY ==
--- NOTE | 2022-12-18 14:24 | US_ITS ---
EXAM: US , LIMITED CLINICAL INDICATION: growth -- 36 weeks TECHNIQUE: Real-time limited ultrasound of the maternal uterus with image documentation. COMPARISON: No relevant prior studies available. FINDINGS: FETUS: Single fetus. GESTATIONAL AGE: Estimated gestational age by measurements is 36 weeks 2 days. Clinical gestational age is 36 weeks. DESTIN: Clinical DESTIN is January 15, 2023. EFW: Estimated weight is 3224 g. BPD: Biparietal diameter is 9.0 cm. HC: Head circumference is 32.2 cm. AC: Abdominal circumference is 34.2 cm. FL: Femur length is 7.1 cm. POSITION: Cephalic presentation. HEART RATE: cardiac rate 145 bpm. PLACENTA: Anterior placenta with grade 1-2 acute change. AMNIOTIC FLUID: Amniotic fluid index is 23.6 cm. US/OB Limited With Biometrics IMPRESSION: Single live 36 week intrauterine gestation with normal interval growth. Borderline polyhydramnios. Electronically Signed: Paul Taylor MD at 16:12 EDT ,
== END | disposition home or self-care (01) ==
LOC: OPUS 14:22
PROVIDERS: Referring Provider Obstetrics & Gynecology; Visit Provider Obstetrics & Gynecology
DX: O09.523 Supervision of elderly multigravida, third trimester (principal); Z3A.36 36 weeks gestation of pregnancy
CPT/HCPCS: 76816

== ENCOUNTER → 2022-12-21 | Outpatient (CLI) | payer OTHER, SELFPAY | END | disposition home or self-care (01) | LOC: LABSPEC 17:12 | PROVIDERS: Referring Provider Obstetrics & Gynecology; Visit Provider Obstetrics & Gynecology | DX: O09.521 Supervision of elderly multigravida, first trimester (principal); Z3A.00 Weeks of gestation of pregnancy not specified | CPT/HCPCS: 87081 ==

== ENCOUNTER → 2022-12-22 | Outpatient (CLI) | payer OTHER, SELFPAY ==
[2022-12-22 11:43] LABS: Glucose Challenge Gest 1H 50g 173 mg/dL (70-140)
[2022-12-22 12:20] LABS: hCG Titer Quant., Serum 17342 mIU/mL (1-3)
== END | disposition home or self-care (01) ==
PROVIDERS: Referring Provider Obstetrics & Gynecology; Visit Provider Obstetrics & Gynecology
DX: O41.93X0 Disorder of amniotic fluid and membranes, unspecified, third trimester, not applicable or unspecified (principal); Z3A.00 Weeks of gestation of pregnancy not specified; Z87.59 Personal history of other complications of pregnancy, childbirth and the puerperium
CPT/HCPCS: 36415; 82950; 84702

== ENCOUNTER → 2023-01-04 | Outpatient (CLI) | payer OTHER, SELFPAY ==
--- NOTE | 2023-01-04 12:26 | US_ITS ---
STUDY: SECOND AND THIRD TRIMESTER OBSTETRICAL ULTRASOUND - LIMITED REASON FOR EXAM: Female, 37 years old ZAIDA -- ZAIDA only LMP: April 10, 2022. PRIOR ULTRASOUND: Comparison is made with prior study dated December 18, 2022. TECHNIQUE: Transabdominal TECHNICAL QUALITY: Adequate. FINDINGS: There is a single intrauterine fetus. The fetus is in a cephalic presentation. There is demonstrated cardiac activity with a heart rate of 135 bpm. There is a normal amniotic fluid volume. The largest amniotic fluid pocket measures 8.6 cm x 5.5 cm. The amniotic fluid index (ZAIDA) is 22.2 cm. The placenta is anterior in location and is not low lying. There are Grade 2 placental changes. The cervix was not measured due to the head positioning. BIOMETRY: Age by LMP: 38 weeks, 3 days. DESTIN by LMP: January 15, 2023. age by prior US: 38 weeks, 5 days. DESTIN by prior US: January 13, 2023. US/OB Limited (No Biometrics) IMPRESSION: Normal amniotic fluid index. Electronically Signed: Elton Reeder MD at 15:25 EST ,
== END | disposition home or self-care (01) ==
LOC: OPUS 12:25
PROVIDERS: Referring Provider Obstetrics & Gynecology; Visit Provider Obstetrics & Gynecology
DX: Z33.1 Pregnant state, incidental (principal)
CPT/HCPCS: 76815

== ENCOUNTER → 2023-01-13 | Outpatient (CLI) | payer OTHER, SELFPAY | END | disposition home or self-care (01) | LOC: LABSPEC 16:43 | PROVIDERS: Visit Provider Obstetrics & Gynecology | DX: R30.0 Dysuria (principal) | CPT/HCPCS: 87086 ==

== ENCOUNTER 2023-01-17 02:50 | Inpatient (IN) | payer OTHER, SELFPAY ==
[2023-01-16 21:35] VITALS: TEMP 37.4
[2023-01-16 21:36] VITALS: BP 123/71; PULSE 82; O2SAT 96
[2023-01-16 22:05] VITALS: BMI 29.5
[2023-01-17] VITALS (50 sets, daily range): BP systolic 83–136; BP diastolic 50–81; PULSE 81–110; RESP 16; TEMP 36.6–38.5; O2SAT 88–100
[2023-01-17] MEDS: Lactated Ringers 1,000 ML 999 ML IV (02:39)
[2023-01-17 03:05] LABS: Absolute Lymphocyte Count 2.15 X10^3/uL (0.83-4.51); Absolute Neutrophil Count 8.5 X10^3/uL (2.0-7.7); Basophil# 0.01 X10^3/uL; Basophil% 0.1 % (0-1); Eosinophil# 0.05 X10^3/uL; Eosinophils% 0.4 % (0-5); Hemoglobin 14.1 g/dL (12.0-15.0); Lymphocyte # 2.15 X10^3/ul (0.83-4.51); Lymphocyte % 18.5 % (19-41); Mean Corp Hgb Conc 33.6 g/dL (32-36); Mean Corpuscular Hgb 33.8 pg (27.0-32.0); Mean Corpuscular Volume 100.7 fL (81-99); Mean Platelet Vol. 11.5 fl (6.2-12.0); Monocyte# 0.82 X10^3/uL; Monocyte% 7.1 % (0-10); NRBC Flagged by Analyzer 0 % (0-5); Neutrophil # 8.52 X10^3/uL (2.7-7.7); Neutrophil % 73.5 % (47-70); Platelet Count 148 K/mm3 (150-450); RBC Distribution Width CV 13.1 % (11.6-14.6); RBC Distribution Width SD 48.7 fl (35.1-43.9); Red Blood Count 4.17 M/mm3 (4.2-5.4); White Blood Count 11.6 K/mm3 (4.4-11.0)
[2023-01-17] MEDS: 0.9% Normal Saline Single 100 ML IV.SOLN. INTRA-UTER (03:31)
--- NOTE | 2023-01-17 03:38 | HP.PCM.OB_ITS ---
HPI - General General Date of Admission: 01/17/23 Chief Complaint: contractions HPI Narrative MARCEL MONSALVE, is a 37 F who presents at 40+2 with contractions with increasing intensity and frequency. good movement, no lof/vb. complicated by AMA and GDM diet controlled. Maternal Data Information DESTIN Calculator Estimated Delivery Date Method Current WG Current Estimate 01/15/23 Ultrasound #1 40w 2d Other Estimates 01/10/23 LMP (Certain) 41w 0d PFSH PFSH Medical History (Updated 01/17/23 @ 03:43 by Justa Andrews CNM) Anxiety Non-smoker Superficial varicosities Wears glasses Home Medications multivitamin no.47-iron fum 27 mg-folate no.1 1 mg-dha 300 mg capsule (PNV-DHA) 1 cap PO DAILY 01/20/22 [History Last Taken 01/15/23 19:00] blood sugar diagnostic (Blood Glucose Test strips) #120 ea 12/23/22 [Rx Last Taken Unknown] blood-glucose meter #1 ea 12/23/22 [Rx Last Taken Unknown] lancets #200 ea 12/23/22 [Rx Last Taken Unknown] Allergy/AdvReac Type Severity Reaction Status Date / Time amoxicillin Allergy Mild Other Verified 01/16/23 22:03 Family History Father Heart disease Surgical History History of wisdom tooth extraction, class II edentulism Status post dilation and curettage Social History adopted: No household members: spouse housing: house number of children: 1 current occupational status: employed 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 current occupational exposures/hazards: No pets and animals: Yes pets and animals: dog(s) history of recent travel: Yes (- November) out of state: Yes out of country: No sexually active: Yes Smoking Status: Never smoker alcohol intake: never substance use type: does not use well-balanced diet: daily or most days caffeine: Yes Type: coffee Number of servings: 1 eating out: 1-3 times/week during the past year weight has: remained stable what type of physical activity do you participate in: none martha/buddhism: Protestant seatbelt use: always do you feel safe at home: Yes additional social history: Diana- [employer] History 3 Elective abortions Hx Para 1 Spontaneous abortions Hx # Term Pregnancies Ectopic pregnancies Hx # Pregnancies Multiple births # of living children 1 Past Pregnancies Del. Date Name GA/Weeks Outcome Route Bth Weight Infant Gen Labor Lgth Anesthesia Del Locatn Provider FOB 09/14/19 Kasie 40 live - full term Male [facility] Dr. Adela Preston Delivery Date: 09/14/19 Last Updated by: Mary Murillo Vaginal bleeding, IOL Visit Details Expected Delivery Route/Plan Labor Preferences- labor support person: diana labor intervention preferences: [] pain management options preferred: epidural cut cord/dad catch: [] : plans PP control planned: [] discussed possible routes of delivery and associated risks: [] special requests: [] Plans Covid status: discussed Flu vaccine: declines 2022 Tdap vaccine: declines Rhogam: na LARC form signed: completed movement and labor precautions reviewed. Problem list reviewed and updated with the most current plan of care details and appropriate orders placed. Relevant counseling for the gestational age provided. Continue routine care and follow up unless otherwise noted in visit notes/problem list details OB Flowsheet Initial Weight: 140 lb Date -?-?-?-?-?-?-?-?-?-?-?-?- EGA Weight BP Urine Prot -?-?-?-?-?-?-?-?-?-?-?-?- Glucose FHR FuHt Pres Dilation -?-?-?-?-?-?-?-?-?-?-?-?- Effaced St Visit Note 05/28/22 -?-?-?-?-?-?-?-?-?-?-?-?- 6w 6d 134 lb 6 oz (-5 lb 10 oz) 110/76 -?-?-?-?-?-?-?-?-?-?-?-?- 128 -?-?-?-?-?-?-?-?-?-?-?-?- JV-single live i up measuring 6w6d. pt also had a formal scan yesterday. wants nipt 06/19/22 -?-?-?-?-?-?-?-?-?-?-?-?- 10w 0d 140 lb 8 oz (+8 oz) 129/81 Negative -?-?-?-?-?-?-?-?-?-?-?-?- Negative 145 -?-?-?-?-?-?-?-?-?-?-?-?- SM- no vb crampi ng 07/10/22 -?-?-?-?-?-?-?-?-?-?-?-?- 13w 0d 141 lb 8 oz (+1 lb 8 oz) 121/71 Negative -?-?-?-?-?-?-?-?-?-?-?-?- Negative 155 -?-?-?-?-?-?-?-?-?-?-?-?- JV- no cramping or spotting. no complaints. anatomy scan scheduled for 08/2008/05/22 -?-?-?-?-?-?-?-?-?-?-?-?- 16w 5d 144 lb 8 oz (+4 lb 8 oz) 132/76 Negative -?-?-?-?-?-?-?-?-?-?-?-?- Negative 150 -?-?-?-?-?-?-?-?-?-?-?-?- LC- no vb/crampi ng. declines AFP. 09/02/22 -?-?-?-?-?-?-?-?-?-?--?-?- 20w 5d 152 lb 8 oz (+12 lb 8 oz) 104/68 Negative -?-?-?-?-?-?-?-?-?-?-?-?- Negative 153 -?-?-?-?-?-?-?-?-?-?-?-?- MH-NO VB, LOF. G ood FM. Dizziness has subsided. Denies concerns 09/28/22 -?-?-?-?-?-?-?-?-?-?-?-?- 24w 3d 157 lb (+17 lb) 105/71 Negative -?-?-?-?-?-?-?-?-?-?-?-?- Negative 140 24 -?-?-?-?-?-?-?-?-?-?-?-?- LC- no concerns. no vb/ctx/lof. good fm. normal anatomy. 28 weeks labs ordered. 10/26/22 -?-?-?-?-?-?-?-?-?-?-?-?- 28w 3d 160 lb (+20 lb) 108/73 Negative -?-?-?-?-?-?-?-?-?-?-?-?- 500 g/dL 140 28 -?-?-?-?-?-?-?-?-?-?-?-?- LC- no vb/ctx/lo f. good fm. passed glucose.declines tdap. 11/11/22 -?-?-?-?-?-?-?-?-?-?-?-?- 30w 5d 163 lb 6 oz (+23 lb 6 oz) 105/68 Negative -?-?-?-?-?-?-?-?-?-?-?-?- Negative 137 30 -?-?-?-?-?-?-?-?-?-?-?-?- LC- no vb/ctx/lo f. good fm. larc completed. declines flu vaccine. varicose veins-to add compression stockings 11/23/22 -?-?-?-?-?-?-?-?-?-?-?-?- 32w 3d 167 lb 5 oz (+27 lb 5 oz) 100/70 Negative -?-?-?-?-?-?-?-?-?-?-?-?- Negative 140 33 -?-?-?-?-?-?-?-?-?-?-?-?- SM- no vb lof go od fm no reuglar ctx ordered 36 week growth US 12/07/22 -?-?-?-?-?-?-?-?-?-?-?-?- 34w 3d 170 lb 8 oz (+30 lb 8 oz) 108/72 Negative -?-?-?-?-?-?-?-?-?-?-?-?- Negative 153 34 -?-?-?-?-?-?--?-?-?-?-?-?- LC- no vb/lof/ct x. good fm. no concerns. 12/21/22 -?-?-?-?-?-?-?-?-?-?-?-?- 36w 3d 173 lb 4 oz (+33 lb 4 oz) 128/75 Negative -?-?-?-?-?-?-?-?-?-?-?-?- Negative 137 37 -?-?-?-?-?-?-?-?-?-?-?-?- JV- growth scan shows baby is 7 lbs 1 oz (no growth percentage in report), zaida 23. plan to repeat gct due to poly and LGA JV- growth scan shows baby i s 7 lbs 1 oz (no growth percentage in report), zaida 23. plan to repeat gct due to poly and LGA. GBS collected 12/28/22 -?-?-?-?-?-?-?-?-?-?-?-?- 37w 3d 171 lb 2 oz (+31 lb 2 oz) 114/75 Negative -?-?-?-?-?-?-?-?-?-?-?-?- Negative 135 38 -?-?-?-?-?-?-?-?-?-?-?-?- SM- no vb lof go od fm no regular ctx bedside zaida 21 largest pocket 7 cm. BS reviewed and on lower carb diet well controlled. nst done. patient requesting expectant management until 40 if able. discussed willl check growth percentile and repeat ZAIDA in one week, if develops zaida 24 and over discussed recommendation for IOL at 39. 01/06/23 -?-?-?-?--?-?-?-?-?-?-?-?- 38w 5d 172 lb 4 oz (+32 lb 4 oz) 137/75 Negative -?-?-?-?-?-?-?-?-?-?-?-?- Negative 140 42 Cephalic 0 .5 -?-?-?-?-?-?-?-?-?-?-?-?- JV- ZAIDA 2 days a go was 22. fasting levels are all normal. if ZAIDA remains normal will allow for to be prolonged to 40 weeks. JV- ZAIDA 2 days ago was 22. f asting levels are all normal. if ZAIDA remains normal will allow for to be prolonged to 40 weeks. NST is reactive JV- ZAIDA 2 days ago was 22. f asting levels are all normal. if ZAIDA remains normal will allow for to be prolonged to 40 weeks. NST is reactive . return wednesday for rpt zaida. if normal patient prefers to continue expectant management until 40 weeks. 01/08/23 -?-?-?-?-?-?-?-?-?-?-?-?- 39w 0d 171 lb 6 oz (+31 lb 6 oz) 122/78 -?-?-?-?-?-?-?-?-?-?-?-?- 131 Cephalic -?-?-?-?-?-?-?-?-?-?-?-?- JV- ZAIDA today is now 17. pt really wants to wait a couple days past 40 weeks before doing an IOL. glucose levels normal and zaida now normal. ok to wait until 40 weeks 3 days if no labor by then. keep wednesday appt next week. 01/13/23 -?-?-?-?-?-?-?-?-?-?-?-?- 39w 5d 170 lb 4 oz (+30 lb 4 oz) 119/78 Negative -?-?-?-?-?-?--?-?-?-?-?-?- Negative 155 39 Cephalic 1 -?-?-?-?-?-?-?-?-?-?-?-?- 60 -2 JV-no lof, vaginal bleeding, or dec fm. plan for 7 am IOL on wednesday, wants to return wednesday for membrane sweep. glucose levels are all normal. 01/15/23 -?-?-?-?-?-?-?-?-?-?-?-?- 40w 0d 172 lb (+32 lb) 128/75 Negative -?-?-?--?-?-?-?-?-?-?-?-?- Negative 147 39 Cephalic 1 -?-?-?-?-?-?-?-?-?-?-?-?- 60 -2 JV- no denilson nge from last exam. membrane stripping attempted without success. Notes Visit Date: 01/15/23 Last Updated by: Sabine Perla, DO 1 NST FHR Rate Baby A Baseline: 125 Variability:: Moderate Accelerations:: 15 x 15 Decelerations:: None NST Reactive:: Yes FHR Category:: Category I Uterine Activity:: q6 minutes ROS Cardiovascular Cardiovascular: Denies abdominal pain, chest pain, diaphoresis or dyspnea Respiratory/Chest Respiratory/Chest: Denies change in mental status, chest congestion, chest tightness, cough, shortness of breath at rest, shortness of breath with exertion, breast mass, breast pain, breast skin changes, breast swelling, change in breast shape or nipple discharge Genitourinary Genitourinary: Reports change in urinary stream Musculoskeletal Musculoskeletal: Reports none Integumentary Integumentary: Reports none Neurologic Neurologic: Reports none Psychiatric Psychiatric: Reports none Endocrine Endocrinology: Reports none Hematologic/Lymphatic Hematologic/Lymphatic: Reports none Allergic/Immunologic Allergic/Immunologic: Reports none Vital Signs Vital Signs Vital Signs: 01/16/23 21:36 01/16/23 21:36 01/16/23 21:36 Temperature Temperature Source Pulse Rate 82 Blood Pressure 123/71 H BP Systolic 123 BP Diastolic 71 Pulse Ox 96 01/16/23 21:35 01/16/23 21:35 01/17/23 03:14 Temperature 99.3 F H Temperature Source Temporal Pulse Rate Blood Pressure 119/74 BP Systolic 119 BP Diastolic 74 Pulse Ox 01/17/23 03:14 01/17/23 03:14 01/17/23 03:14 Temperature Temperature Source Pulse Rate 92 86 Blood Pressure BP Systolic BP Diastolic Pulse Ox 99 Weight Weight: 172 lb Body Mass Index (BMI) 29.5 Physical Exam Const alert, oriented x3 and no apparent distress General Appearance: cooperative, comfortable and well kempt Orientation / Consciousness: awake and oriented to person Exam Limitations: no limitations HEENT normocephalic Neck full ROM Chest inspection of chest normal Resp normal respiratory effort, normal air movement and no retractions Effort and Inspection: able to speak in complete sentences and symmetric chest movement Cardio regular rate Peripheral Pulses: pulses 2+ throughout GI normal to inspection, nondistended, normoactive bowel sounds Inspection: gravid no CVA tenderness and appearance of the vagina normal External Female Exam: normal appearance of the urethra; Negative for external lesion OB / External & Speculum: external exam normal Manual OB Exam: estimated gestational size appropriate and presentation cephalic Uterus Palpation: Negative for uterus tender Extremity normal to inspection Skin no rashes or lesions noted Neuro deep tendon reflexes 2+ bilaterally and gait normal Motor Exam: strength 5/5 throughout and clonus absent Psych Activity / Motor Behavior: appropriate eye contact Speech: normal speech Labs Labs Labs: Blood Type A POSITIVE Antibody Screen NEGATIVE Hct 42.0 % (37-47) Hgb 14.1 g/dL (12.0-15.0) Obstetrics Ultrasound Syphilis Total Ab Non-reactive Rubella IgG Antibody Reactive (Nonreactive) Hep Bs Antigen Non-Reactive (Nonreactive) Hepatitis C Antibody Non-Reactive (Nonreactive) Chlamydia DNA (DYLAN) Negative (Negative) N.gonorrhoeae DNA (DYLAN) Negative (Negative) HIV 1&2 Antibody Non-Reactive (Nonreactive) Glucose 1 Hr 50 gm 173 mg/dL (70-140) H Rhogam given: Yes Miscellaneous Test Assessment & Plan (1) Encounter for induction of labor: COMMENT: mansfield bulb placed (2) Gestational diabetes: COMMENT: repeat 1 hr at 37 weeks was 173, didn't do 3 hr, due to GA checking home BS and managing as diabetic with lower carb diet. deliver at 39-40 wks depending on repeat ZAIDA, BS and EFW. bs well controlled with diet fastings under 90, 2 hours under 100-110. EFW 86%ile. ZAIDA 21 cm on 12/18. repeat ZAIDA 01/04 (3) AMA (advanced maternal age) multigravida 35+: COMMENT: growth US at 36 weeks- 86%ile, borderline polyhydramnios, repeat 21 cm, repeat ordered again for 38 weeks, discussed IOL at 39 if repeat over 24 cm (4) Supervision of high risk elderly multigravida in first trimester: COMMENT: PRR. , DESTIN 01/15/2023, boy low risk NIPT PC Kasie, Diana (5) : QUALIFIERS: Weeks of gestation: 40 weeks Qualified Code(s): Z3A.40 - 40 weeks gestation of COMMENT: Neg GBS. nl anatomy, NIPT low risk afp and carrier declined. nl anatomy. PLAN: Plan Patient presents with contractions with increased intensity, minimal cervical change from nursing, however late decelerations present from 1:40 with most contractions. resolving with position changes and IVF bolus. plan for admission for induction of labor, mansfield bulb placed. Pain management: plans epidural. GBS negative Management of any complications: none I have reviewed the [facility] and made any clinically relevant updates. Dr. Jane updated on exam, admission and poc and agrees with above.
[2023-01-17] MEDS: Lactated Ringers 1,000 ML 50 ML IV (03:58)
[2023-01-17 04:04] LABS: Syphilis Antibodies Non-reactive
[2023-01-17 04:38] LABS: Bedside Glucose 89 mg/dL (74-106)
[2023-01-17] MEDS: Oxytocin 15 Units/NS 250ml 15 UNITS/250 ML IV.SOLN 2 UNITS IV (08:24)
[2023-01-17 08:50] LABS: Bedside Glucose 82 mg/dL (74-106)
[2023-01-17] MEDS: LACTATED RINGERS 500 ML 999 ML IV ×2 (12:25→13:15)
[2023-01-17] MEDS: ePHEDrine Sulfate 50 MG/ML Ampul IV (13:20)
[2023-01-17] MEDS: fentaNYL-bupivacaine (epidural) 100 ML BAG EPIDURAL (13:21)
[2023-01-17 13:26] LABS: Bedside Glucose 92 mg/dL (74-106)
[2023-01-17 13:26] LABS: Bedside Glucose 64 mg/dL (74-106)
--- NOTE | 2023-01-17 13:37 | PN.OBGYN_ITS ---
Subjective Subjective Kay is now more comfortable after epidural, having leaking of fluid with vaginal pressure. Objective Data Objective Data Vital Signs: Vital Signs Temp Pulse BP Pulse Ox 99.1 F 110 H 118/62 99 01/17/23 12:10 01/17/23 13:35 01/17/23 13:35 01/17/23 13:31 Weight: 172 lb Body Mass Index (BMI) 29.5 Intake & Output: Intake and Output for Last 24 Hours 01/15/23 01/16/23 01/17/23 23:59 23:59 23:59 Intake Total 2455.86 / 2455.86 Output Total 1250 / 1250 Balance 1205.86 / 1205.86 Lab / Micro Data 01/17/23 02:35 Labs: Laboratory Results - last 24 hr 01/17/23 02:35: WBC 11.6 H, RBC 4.17 L, Hgb 14.1, Hct 42.0, MCV 100.7 H, MCH 33.8 H, MCHC 33.6, RDW Std Deviation 48.7 H, RDW Coeff of Mahendra 13.1, Plt Count 148 L, MPV 11.5, Immature Gran % (Auto) 0.400, Neut % (Auto) 73.5 H, Lymph % (Auto) 18.5 L, [place] % (Auto) 7.1, Eos % (Auto) 0.4, Baso % (Auto) 0.1, Absolute Neuts (auto) 8.5 H, Absolute Lymphs (auto) 2.15, Nucleated RBC % 0, Syphilis Total Ab Non-reactive, Blood Type A POSITIVE, Antibody Screen NEGATIVE 01/17/23 04:01: POC Glucose 89 01/17/23 08:22: POC Glucose 82 01/17/23 12:07: POC Glucose 64 L 01/17/23 12:57: POC Glucose 92 Physical Exam Const alert and no apparent distress Resp normal respiratory effort and normal air movement Manual OB Exam: presentation cephalic, dilated 9, effaced and station +1 Amniotic Fluid: clear amniotic fluid Assessment & Plan (1) AMA (advanced maternal age) multigravida 35+: COMMENT: growth US at 36 weeks- 86%ile, borderline polyhydramnios, repeat 21 cm, repeat ordered again for 38 weeks, discussed IOL at 39 if repeat over 24 cm (2) Encounter for induction of labor: COMMENT: mansfield bulb placed, pitocin at 8mu (3) Gestational diabetes: COMMENT: repeat 1 hr at 37 weeks was 173, didn't do 3 hr, due to GA checking home BS and managing as diabetic with lower carb diet. deliver at 39-40 wks depending on repeat ZAIDA, BS and EFW. bs well controlled with diet fastings under 90, 2 hours under 100-110. EFW 86%ile. ZAIDA 21 cm on 12/18. repeat ZAIDA 01/04 (4) : QUALIFIERS: Weeks of gestation: 40 weeks Qualified Code(s): Z3A.40 - 40 weeks gestation of COMMENT: Neg GBS. nl anatomy, NIPT low risk afp and carrier declined. nl anatomy. (5) Supervision of high risk elderly multigravida in first trimester: COMMENT: PRR. , DESTIN 01/15/2023, boy low risk NIPT PC Kasie, Mohan (6) SROM (spontaneous rupture of membranes): COMMENT: around 130pm PLAN: Plan current tracing:cat 1 FHT: Moderate variability reactive no decelerations category I tracing [place]: q2-3 minutes Contractions reviewed tracing abnormalities since last note: early decelerations A/P: SROM clear fluid, transition labor, epidural for comfort -anticipate -Dr. Jane updated on labor progress.
--- NOTE | 2023-01-17 14:53 | EX.PCM.OBRPT ---
Assessment & Plan (1) (spontaneous vaginal delivery): COMMENT: LC IOL-GDM, decels. boy: Yusuf (Max) Maternal Data Information DESTIN Calculator Estimated Delivery Date Method Current WG Current Estimate 01/15/23 Ultrasound #1 40w 2d Other Estimates 01/10/23 LMP (Certain) 41w 0d Final DESTIN: 01/15/23 Gestational age: 40.2 Vaginal Delivery Maternal Presentation Maternal Presentation: pt triaged with contractions without cervical change, late decelerations noted. was planned IOL on wednesday, decision to induce on 01/17 with decelerations noted. IOL with mansfield bulb initated. pitocin added in AM once resolution to cat 1 tracing. progressed to fully dilated with urge to push. Type of Induction: Mansfield Bulb Medical Reason for Induction: Compromise: list: (late decelerations. maternal GDM, AMA ) Operative Information Date of Procedure: 01/17/23 Surgery / Procedure Performed: Spontaneous Vaginal Delivery Type of Anesthesia: Epidural Estimated Blood Loss: 250 Time of Delivery: 14:14 Findings Description of Procedure: Patient began pushing and delivered the head in the ANNY presentation. The head was delivered atraumatically. The anterior and posterior shoulders delivered without complication followed by the rest of the and the infant was placed on the maternal abdomen. Delayed cord clamping was employed for approximately 60 seconds. Cord was clamped and cut and gentle traction was applied to the cord and the placenta delivered spontaneously immediately following it was noted to be intact with three-vessel cord. The perineum and vagina were inspected and noted to have shallow second degree laceration, repaired with 3-0 vicryl in usual fashion. EBL was 250cc. Patient and infant tolerated delivery well, entered recovery phase bonding skin to skin. . Presentation: Vertex Amniotic Membrane Rupture Type: Spontaneous Amniotic Fluid Description: Clear Placental Delivery Description: Spontaneous Placenta Disposition: [facility] Cord Vessel Description: 3 Vessels Cord Entanglement: None Infant A Gender: Male (1 minute): 8 (5 minute): 9 Delayed Cord Clamping: Yes Post Vaginal Delivery Medications Given After Delivery: IV Pitocin Episiotomy Description: None Laceration: 2nd degree Complication Complications: None Procedures Urinary/Genital [id number]: [id number] Vaginal Delivery global pkg
--- NOTE | 2023-01-17 15:01 | DCINST_ITS ---
Discharge Instructions Diet Discharge Diet: No restrictions Activity Discharge Activity: May Not Drive and May Shower May resume sexual activity in: 6 weeks Weight Bearing Status: Full weight bearing Dressing / Incision Call your doctor if your incision/area has: Sudden Increased Bleeding, Increased Pain/ Swelling and Foul Smelling Discharge Call your doctor if you observe: Fever of 101 or Higher, Numbness or Tingling, Change in Color, Inability to urinate, Inability to have a bowel movement, Using more than 1 pad per hour, Shortness of breath, Dizziness, Fainting spells, Chest pain, Calf discomfort and Uncontrolled pain Follow Up Care Please Follow Up With: Justa Andrews CNM When: 6 weeks , please call office to make an appointment. Congratulations on the of your baby boy MAX! Test Results: Test results from this visit will be discussed in further detail at your follow- up appointment, if applicable. Discharge Plan Admission Admit Date/Time: 01/17/23 02:50 Attending Provider: Justa Andrews Primary Care Provider: Care Physician,Anais Primary Discharge Orders/Prescriptions Prescriptions: No Action PNV-DHA 27 mg iron-1 mg -300 mg capsule 1 cap PO DAILY (DME) blood-glucose meter Misc See Rx Instructions .MEDSUPPLY Qty: 1 0RF Rx Instructions: As directed- Test fasting and 2 hours after meals (DME) lancets Misc See Rx Instructions .MEDSUPPLY Qty: 200 4RF Rx Instructions: As directed- fasting & 2 HR post meals (DME) Blood Glucose Test Strip See Rx Instructions .Route Qty: 120 4RF Rx Instructions: As directed-fasting & 2 Hr post meals Referrals / Follow Up: Care Physician,No Primary [Primary Care Provider] - Disposition Disposition (needs filled in before D/C Order can be placed): Home, Self Care
[2023-01-17] MEDS: Oxytocin 15 Units/NS 250ml 15 UNITS/250 ML IV.SOLN 83 UNITS IV (15:15)
[2023-01-17 16:37] LABS: Bedside Glucose 93 mg/dL (74-106)
[2023-01-17 16:37] LABS: Bedside Glucose 108 mg/dL (74-106)
[2023-01-17] MEDS: 0.9% Saline Lock 10 ML Syringe IV (18:15)
[2023-01-17] MEDS: Acetaminophen 500 MG Tablet 1000 MG PO (18:50)
[2023-01-17 19:08] LABS: Absolute Neutrophil Count 14.9 X10^3/uL (2.0-7.7); Basophil# 0.04 X10^3/uL; Basophil% 0.2 % (0-1); Hemoglobin 13.4 g/dL (12.0-15.0); Lymphocyte % 7.5 % (19-41); Mean Corp Hgb Conc 33.5 g/dL (32-36); Mean Corpuscular Hgb 33.8 pg (27.0-32.0); Mean Platelet Vol. 10.7 fl (6.2-12.0); Monocyte# 1.02 X10^3/uL; Monocyte% 5.9 % (0-10); NRBC Flagged by Analyzer 0 % (0-5); Neutrophil # 14.86 X10^3/uL (2.7-7.7); Neutrophil % 85.9 % (47-70); Platelet Count 142 K/mm3 (150-450); RBC Distribution Width CV 13.1 % (11.6-14.6); RBC Distribution Width SD 49.1 fl (35.1-43.9); Red Blood Count 3.96 M/mm3 (4.2-5.4); White Blood Count 17.3 K/mm3 (4.4-11.0)
[2023-01-18] VITALS (8 sets, daily range): BP systolic 104–132; BP diastolic 56–71; PULSE 82–90; RESP 16–18; TEMP 36.7–37.4; O2SAT 97
[2023-01-18] MEDS: Acetaminophen 500 MG Tablet 1000 MG PO (03:28)
[2023-01-18 06:01] LABS: Absolute Lymphocyte Count 1.52 X10^3/uL (0.83-4.51); Absolute Neutrophil Count 11.7 X10^3/uL (2.0-7.7); Basophil# 0.03 X10^3/uL; Basophil% 0.2 % (0-1); Eosinophil# 0.02 X10^3/uL; Eosinophils% 0.1 % (0-5); Hematocrit 40.3 % (37-47); Hemoglobin 13.5 g/dL (12.0-15.0); Lymphocyte # 1.52 X10^3/ul (0.83-4.51); Lymphocyte % 10.8 % (19-41); Mean Corp Hgb Conc 33.5 g/dL (32-36); Mean Corpuscular Hgb 33.9 pg (27.0-32.0); Mean Corpuscular Volume 101.3 fL (81-99); Mean Platelet Vol. 10.9 fl (6.2-12.0); Monocyte# 0.75 X10^3/uL; Monocyte% 5.3 % (0-10); NRBC Flagged by Analyzer 0 % (0-5); Neutrophil # 11.69 X10^3/uL (2.7-7.7); Platelet Count 143 K/mm3 (150-450); RBC Distribution Width CV 13.2 % (11.6-14.6); Red Blood Count 3.98 M/mm3 (4.2-5.4); White Blood Count 14.1 K/mm3 (4.4-11.0)
[2023-01-18 06:11] LABS: Bedside Glucose 91 mg/dL (74-106)
--- NOTE | 2023-01-18 09:06 | PN.OBGYN_ITS ---
Subjective Subjective Patient doing well without complaints. Tolerating PO. Ambulating and voiding without difficulty. Feeding well. Denies chest pain, shortness of breath, calf pain/swelling, fevers, chills, lightheadedness. Had fever x1 , now afebrile Objective Data Objective Data Vital Signs: Vital Signs Temp Pulse Resp BP Pulse Ox O2 Del Method 98.1 F 86 16 104/71 97 Room Air 01/18/23 08:50 01/18/23 08:50 01/18/23 08:50 01/18/23 08:50 01/18/23 04:09 01/18/23 08:50 Oxygen Delivery Method Room Air Weight: 172 lb Body Mass Index (BMI) 29.5 Intake & Output: Intake and Output for Last 24 Hours 01/16/23 01/17/23 01/18/23 23:59 23:59 23:59 Intake Total 3751.66 / 3751.66 Output Total 2200 / 2200 400 / 400 Balance 1551.66 / 1551.66 -400 / -400 Lab / Micro Data 01/18/23 05:50 Labs: Laboratory Results - last 24 hr 01/17/23 12:07: POC Glucose 64 L 01/17/23 12:57: POC Glucose 92 01/17/23 13:54: POC Glucose 93 01/17/23 16:11: POC Glucose 108 H 01/17/23 18:45: WBC 17.3 H, RBC 3.96 L, Hgb 13.4, Hct 40.0, MCV 101.0 H, MCH 33.8 H, MCHC 33.5, RDW Std Deviation 49.1 H, RDW Coeff of Mahendra 13.1, Plt Count 142 L, MPV 10.7, Immature Gran % (Auto) 0.500, Neut % (Auto) 85.9 H, Lymph % (Auto) 7.5 L, [place] % (Auto) 5.9, Eos % (Auto) 0.0, Baso % (Auto) 0.2, Absolute Neuts (auto) 14.9 H, Absolute Lymphs (auto) 1.30, Nucleated RBC % 0 01/18/23 05:38: POC Glucose 91 01/18/23 05:50: WBC 14.1 H, RBC 3.98 L, Hgb 13.5, Hct 40.3, MCV 101.3 H, MCH 33.9 H, MCHC 33.5, RDW Std Deviation 49.0 H, RDW Coeff of Mahendra 13.2, Plt Count 143 L, MPV 10.9, Immature Gran % (Auto) 0.600, Neut % (Auto) 83.0 H, Lymph % (Auto) 10.8 L, [place] % (Auto) 5.3, Eos % (Auto) 0.1, Baso % (Auto) 0.2, Absolute Neuts (auto) 11.7 H, Absolute Lymphs (auto) 1.52, Nucleated RBC % 0 Physical Exam Const alert and no apparent distress Chest inspection of chest normal and palpation of chest normal Resp normal respiratory effort, normal air movement and no retractions Cardio regular rate and regular rhythm GI normal to inspection, nondistended, normoactive bowel sounds Uterus Palpation: uterus fundus firm (under u) Extremity normal to inspection, no calf tenderness and no pedal edema Skin no rashes or lesions noted Psych mental status grossly normal Assessment & Plan (1) (spontaneous vaginal delivery): COMMENT: LC IOL-GDM, decels. boy: Yusuf (Max). CBC stable, WBC trending downwards, stable temperatures. no s/sx of infection PLAN: s/p PPD # 1 1. routine post delivery care 2. breast feeding- support given 3. rh positive 4. rubella immune 5. d/c home today
[2023-01-18 11:18] LABS: Bedside Glucose 86 mg/dL (74-106)
[2023-01-18] MEDS: Senna/Docusate Sodium 1 Tablet PO (12:31)
== END 2023-01-18 17:00 | disposition home or self-care (01) | DRG 807 ==
LOC: WPOUT 02:53 → WP 02:53
PROVIDERS: Admitting Provider Registered Nurse; Visit Provider Registered Nurse
DX: O24.410 Gestational diabetes mellitus in pregnancy, diet controlled (principal); Z37.0 Single live birth; O76 Abnormality in fetal heart rate and rhythm complicating labor and delivery; Z3A.40 40 weeks gestation of pregnancy
CPT/HCPCS: 59025; 59050; 82962; 85025; 86780; 86850; 86900; 86901; 99221; J7120; A4216; G0378

== ENCOUNTER → 2023-03-05 | Outpatient (CLI) | payer OTHER, SELFPAY ==
--- OUTSIDE RECORDS SUMMARY | 2023-03-05 17:22 | XMS RPT_ITS | CCD ---
Author Name Unknown Address [address] [place] [address] Organization [facility] Care Team Providers Care [employer] Team Member Name Role Phone TYESHA, DR MALLIKA Harry Attending Unavaila ble TYESHA, DR MALLIKA Harry Primary Care Unavaila luisito ARAMBULA, DR MALLIKA Harry Admitting Unavaila Shasta Barber DO Primary Care Provider NO PRIMARY CAREMD Primary Care Unavailable WESTLEY SHEETS Referring UnavailROSETTA Urbina Attending Unavailable Shasta Herrera DO Primary Care Provider [phone] SHASTA HERRERA Attending Unavailable SHASTA HERRERA Primary Care Unavailable Allergies Allergy Classification Reported Allergen(s) Allergy Type Date of Onset Reaction(s) Facility (3 sources) Amoxicillin; Translations: [AMOXICILLIN] Drug Allergy 10-27-2017 [facility] Medications Completed/Discontinued Medications Medication Drug Class(es) Dates Sig (Normalized) Sig (Original) [id number] 200 actuat albuterol 0.09 mg/actuat metered dose inhaler (2 sources) beta2-Adrenergic Agonist Start: 12-05-2021 take 2 puff(s) by inhalation every four hours as needed for cough albuterol HFA (PROAIR HFA) 90 mcg/actuation inhaler Indications: Cough, unspecified type Inhale 2 Puffs as instructed every 4 hours as needed (cough). 18 g 0 12/05/2021 Active Problems Active Problems Problem Classification Problem Date Documented Da te Episodic/Chronic Other lower respiratory disease (1 source) Cough; Translations: [Cough, unspecified type] Episodic Other upper respiratory infections (2 sources) Upper respiratory infection; Translations: [Acute upper respiratory infection, unspecified] Episodic Past or Other Problems Problem Classification Problem Date Documented Da te Episodic/Chronic Mycoses (2 sources) Pityriasis versicolor; Translations: [Pityriasis versicolor] Onset: 11-16-2017 11-16-2017 Episodic Other and unspecified benign neoplasm (2 sources) Multiple benign melanocytic nevi ; Translations: [Melanocytic nevi, unspecified] Onset: 11-16-2017 11-16-2017 Episodic Residual codes; unclassified (2 sources) Family history of malignant neoplasm of skin; Translations: [Family history of malignant neoplasm of other organs or systems] Onset: 11-16-2017 11-16-2017 Episodic Results Test Name Value Interpretation Reference Range Facil ity Vital Signs Date Time Vital Sign Value Performing Clinician Kika hansen 12-05-2021 14:31-0400 Body height 162.6 cm Shasta Ever DO Work Phone: [facility] 12-05-2021 14:31-0400 Body temperature 98.1 [degF] Shasta Ever DO Work Phone: [facility] 12-05-2021 14:31-0400 Body weight 60.33 kg Shasta Ever DO Work Phone: [facility] 12-05-2021 14:31-0400 Diastolic blood pressure 72 mm[Hg] Shasta Ever DO Work Phone: [facility] 12-05-2021 14:31-0400 Heart rate 80 /min Shasta Ever DO Work Phone: [facility] 12-05-2021 14:31-0400 SaO2% (BldA) [Mass fraction] 99 % Shasta Ever DO Work Phone: [facility] 12-05-2021 14:31-0400 Systolic blood pressure 107 mm[Hg] Shasta Ever DO Work Phone: [facility] Encounters Encounter Date Encounter Type Care Provider Facility Start: 09-16-2022 Telephone encounter Shasta L Sh illing DO Work Phone: [facility] Plan of Treatment Date Care Activity Detail Author Start: 06-07-2023 HPV TESTING HPV TESTING [facility] Start: 06-07-2023 PAP TESTING PAP TESTING [facility] Start: 10-30-2022 Influenza vaccination INFLUENZA (#1) [facility] Start: 03-01-2022 DEPRESSION ASSESSMENT DEPRESSION ASS ESSMENT [facility] Start: 10-30-2021 Influenza vaccination INFLUENZA (#1) [facility] Start: 2004 Urine microalbumin profile DTAP,TDAP ,TD (1 - Tdap) [facility] Start: 10-12-2003 HEPATITIS C SCREENING HEPATITIS C SC REENING [facility] Start: 10-12-2003 HIV SCREENING HIV SCREENING [facility] Start: 04-13-1986 COVID-19 VACCINE (#1) COVID-19 VACCI NE (#1) [facility] Start: 1985 HEPATITIS B (1 of 3 - 3-dose series) HEPATITIS B (1 of 3 - 3-dose series) [facility] Payers Date Payer Category Payer Unknown [employer] P[employer] [id number] 2019-Present [phone] [address] [place] [address] PPO [id number] 2019 Unknown [id number] 1985 Unknown [id number] Social History Date Type Detail Facility [facility]: [facility] Start: 11-16-2017 Tobacco use and exposure Smokeless tobacco non-user [facility] Start: 12-05-2021 Alcohol intake Current drinke r of alcohol (finding) [facility] Start: 10-27-2017 History SDOH Alcohol Comment Occasional [facility] Start: 1985 Sex Assigned At Not on file [facility] Start: 11-25-2021 End: 12-05-2021 Exposure to SARS-CoV-2 (event) Not sure [facility] Start: 12-05-2021 End: 03-20-2022 History of Social function [facility] Work Phone: Start: 12-05-2021 End: 03-20-2022 Tobacco use panel [facility] Work Phone: Adult Depression Screening Assessment 0 [facility] Work Phone: Note 09-16-2022 Telephone Encounter - Giovana Raphael - 09/16/2022 11:18 AM EDTTelephone Encounter - Dagoberto Hager MA - 09/16/2022 11:13 AM EDT Note Date & Type Note Facility 09-16-2022 Miscellaneous Notes Formattin g of this note might be different from the original. Called the patient and left a message offering to set up an appointment for the [facility]. Giovana Raphael Patient has no upcoming appointment. Please schedule for wellness. Thank you! Dagoberto Hager CMA documented in this encounter [facility] Progress note 12-05-2021 Note Date & Type Note Facility 12-05-2021 Note HNO ID: [id number] Author: Shasta Herrera, DO Service: ? Author Type: Physician Type: Progress Notes Filed: 12/05/2021 3:03 PM Note Text: SUBJECTIVE Kay Brown is an 36 year old female who presents with an illness characterized by dry cough. Symptoms began 10 day(s) ago and are occuring every evening around 6:30-[address] with [address] at first, lost voice and mild PND, but this has improved. Cough is just hanging on. Evening are bad, when trying to put my son to bed, reading books. Cannot inhale without coughing. Cough is dry, never any sputum production. Chest is clear, no wheezing. Have slept better just the last 2 nights. I will be traveling to [place] to visit with family and cousins. All the girls are getting together! Want to know that I am healthy. Past history is significant for no history of pneumonia or bronchitis and no history of asthma or COPD. Risk factors: none. has been fine, son started with some cold symptoms this morning. PAST MEDICAL HISTORY Diagnosis Date Anxiety ALLERGIES Allergen Reactions Amoxicillin Hives Medication: Current Outpatient Medications Medication Sig Dispense Refill albuterol HFA (PROAIR HFA) 90 mcg/actuation inhaler Inhale 2 Puffs as instructed every 4 hours as needed (cough). 18 g 0 No current facility-administered medications for this visit. PAST SURGICAL HISTORY Procedure Laterality Date NONE Social History Tobacco Use Smoking status: Never Smokeless tobacco: Never Substance Use Topics Alcohol use: Yes Comment: Occasional Drug use: No Comment: Unknown FAMILY HISTORY Problem Relation Age of Onset Skin Cancer Mother Heart disease Father Review of Systems Constitutional: Negative for chills, fatigue and fever. HENT: Negative for congestion, ear pain and sore throat. Respiratory: Positive for cough. Negative for chest tightness, shortness of breath and wheezing. Cardiovascular: Negative for chest pain, palpitations and leg swelling. Gastrointestinal: Negative for abdominal pain, constipation, diarrhea, nausea and vomiting. Musculoskeletal: Negative for back pain, gait problem, joint swelling, myalgias and neck pain. Skin: Negative for rash and wound. Neurological: Negative for dizziness, numbness and headaches. Psychiatric/Behavioral: Negative for dysphoric mood. The patient is not nervous/anxious. OBJECTIVE BP 107/72 Pulse 80 Temp 36.7 ?C (98.1 ?F) (Oral) Ht 162.6 cm (5' 4 ) Wt 60.3 kg (133 lb) LMP 11/28/2018 (Approximate) SpO2 99% BMI 22.83 kg/m? Body mass index is 22.83 kg/m?. Last 3 Encounter BP Readings: Date: BP: 11/16/2017 110/66 No data found for this vital: Pulse Last 3 Encounter Wt Readings: Date: Wt: 12/29/2019 61.2 kg (135 lb) 11/16/2017 56.8 kg (125 lb 4.8 oz) Physical Exam Constitutional: General: She is not in acute distress. Appearance: Normal appearance. She is well-developed. HENT: Head: Normocephalic and atraumatic. Right Ear: Tympanic membrane normal. Left Ear: Tympanic membrane normal. Nose: Nose normal. Mouth/Throat: Lips: [place]. Mouth: Mucous membranes are moist. Pharynx: Oropharynx is clear. Uvula midline. Eyes: Extraocular Movements: Extraocular movements intact. Pupils: Pupils are equal, round, and reactive to light. Cardiovascular: Rate and Rhythm: Normal rate and regular rhythm. Heart sounds: Normal heart sounds. Pulmonary: Effort: Pulmonary effort is normal. Breath sounds: Normal breath sounds. No wheezing, rhonchi or rales. Comments: Persistent dry cough in the office. Musculoskeletal: General: Normal range of motion. Skin: General: Skin is warm and dry. Neurological: Mental Status: She is alert and oriented to person, place, and time. Psychiatric: Mood and Affect: Mood normal. Speech: Speech normal. Behavior: Behavior normal. Thought Content: Thought content normal. Judgment: Judgment normal. Assessment/Plan: Encounter Diagnosis ICD-10-CM 1. Upper respiratory tract infection, unspecified type J06.9 Improving 2. Cough, unspecified type R05.9 albuterol HFA (PROAIR HFA) 90 mcg/actuation inhaler 1) See medication(s) in order section. 2) Rest, fluids, acetaminophen, and humidification. 3) Recheck prn persistence, worsening, appearance of new symptoms. 4) Return for Follow up as needed. 5) and may continue with any cough medicine or cough drops as she has been doing. Discussed use of bronchodilator inhaler such as albuterol. Described use and how it would help her dry cough. This is placed on file at the pharmacy. She would like to see how she does over the weekend and if not improving she will pick this up on Wednesday. Shasta Herrera DO The above medical documentation was generated using [employer] voice recognition system, as such, the contents may contain grammatical errors. [facility] History of Present illness Narrative 12-05-2021 Shasta Herrera DO - 12/05/2021 2:20 PM EDT Note Date & Type Note Facility 12-05-2021 History of Presen t illness Narrative SUBJECTIVE Kay Brown is an 36 year old female who presents with an illness characterized by dry cough. Symptoms began 10 day(s) ago and are occuring every evening around 6:30-[address] at first, lost voice and mild PND, but this has improved. Cough is just hanging on. Evening are bad, when trying to put my son to bed, reading books. Cannot inhale without coughing. Cough is dry, never any sputum production. Chest is clear, no wheezing. Have slept better just the last 2 nights. I will be traveling to [place] to visit with family and cousins. All the girls are getting together! Want to know that I am healthy. Past history is significant for no history of pneumonia or bronchitis and no history of asthma or COPD. Risk factors: none. has been fine, son started with some cold symptoms this morning. PAST MEDICAL HISTORY Diagnosis Date Anxiety ALLERGIES Allergen Reactions Amoxicillin Hives Medication: Current Outpatient Medications Medication Sig Dispense Refill albuterol HFA (PROAIR HFA) 90 mcg/actuation inhaler Inhale 2 Puffs as instructed every 4 hours as needed (cough). 18 g 0 No current facility-administered medications for this visit. PAST SURGICAL HISTORY Procedure Laterality Date NONE Social History Tobacco Use Smoking status: Never Smokeless tobacco: Never Substance Use Topics Alcohol use: Yes Comment: Occasional Drug use: No Comment: Unknown FAMILY HISTORY Problem Relation Age of Onset Skin Cancer Mother Heart disease Father Review of Systems Constitutional: Negative for chills, fatigue and fever. HENT: Negative for congestion, ear pain and sore throat. Respiratory: Positive for cough. Negative for chest tightness, shortness of breath and wheezing. Cardiovascular: Negative for chest pain, palpitations and leg swelling. Gastrointestinal: Negative for abdominal pain, constipation, diarrhea, nausea and vomiting. Musculoskeletal: Negative for back pain, gait problem, joint swelling, myalgias and neck pain. Skin: Negative for rash and wound. Neurological: Negative for dizziness, numbness and headaches. Psychiatric/Behavioral: Negative for dysphoric mood. The patient is not nervous/anxious. OBJECTIVE BP 107/72 Pulse 80 Temp 36.7 C (98.1 F) (Oral) Ht 162.6 cm (5' 4 ) Wt 60.3 kg (133 lb) LMP 11/28/2018 (Approximate) SpO2 99% BMI 22.83 kg/m Body mass index is 22.83 kg/m . Last 3 Encounter BP Readings: Date: BP: 11/16/2017 110/66 No data found for this vital: Pulse Last 3 Encounter Wt Readings: Date: Wt: 12/29/2019 61.2 kg (135 lb) 11/16/2017 56.8 kg (125 lb 4.8 oz) Physical Exam Constitutional: General: She is not in acute distress. Appearance: Normal appearance. She is well-developed. HENT: Head: Normocephalic and atraumatic. Right Ear: Tympanic membrane normal. Left Ear: Tympanic membrane normal. Nose: Nose normal. Mouth/Throat: Lips: [place]. Mouth: Mucous membranes are moist. Pharynx: Oropharynx is clear. Uvula midline. Eyes: Extraocular Movements: Extraocular movements intact. Pupils: Pupils are equal, round, and reactive to light. Cardiovascular: Rate and Rhythm: Normal rate and regular rhythm. Heart sounds: Normal heart sounds. Pulmonary: Effort: Pulmonary effort is normal. Breath sounds: Normal breath sounds. No wheezing, rhonchi or rales. Comments: Persistent dry cough in the office. Musculoskeletal: General: Normal range of motion. Skin: General: Skin is warm and dry. Neurological: Mental Status: She is alert and oriented to person, place, and time. Psychiatric: Mood and Affect: Mood normal. Speech: Speech normal. Behavior: Behavior normal. Thought Content: Thought content normal. Judgment: Judgment normal. Assessment/Plan: Encounter Diagnosis ICD-10-CM 1. Upper respiratory tract infection, unspecified type J06.9 Improving 2. Cough, unspecified type R05.9 albuterol HFA (PROAIR HFA) 90 mcg/actuation inhaler 1) See medication(s) in order section. 2) Rest, fluids, acetaminophen, and humidification. 3) Recheck prn persistence, worsening, appearance of new symptoms. 4) Return for Follow up as needed. 5) and may continue with any cough medicine or cough drops as she has been doing. Discussed use of bronchodilator inhaler such as albuterol. Described use and how it would help her dry cough. This is placed on file at the pharmacy. She would like to see how she does over the weekend and if not improving she will pick this up on Wednesday. Shasta Herrera DO The above medical documentation was generated using [employer] voice recognition system, as such, the contents may contain grammatical errors. documented in this encounter [facility] Evaluation note Note Date & Type Note Facility documented in this encounter [facility] Summary Purpose Family History No Family History Records FoundNo Family History Records FoundNo Family History Records FoundNo Family History Records Found Advance Directives No Advanced Directives Records FoundNo Advanced Directives Records FoundNo Advanced Directives Records FoundNo Advanced Directives Records Found Additional Source Comments INFORMATION SOURCE (unrecogn ized section and content) DATE CREATED AUTHOR AUTHOR'S ORGANIZ ATION 11/27/2020 [facility] DATE CREATED AUTHOR AUTHOR'S ORGANIZ ATION 08/25/2022 [facility] DATE CREATED AUTHOR AUTHOR'S ORGANIZ ATION 09/17/2022 [facility] Source Comments (unrecognize d section and content) In the event this informatio n is protected by the Federal Confidentiality of Alcohol and Drug Abuse Patient Records regulations: The Federal rules restrict any use of the information to criminally investigate or prosecute any alcohol or drug abuse patient.[facility] the event this information is protected by the Federal Confidentiality of Alcohol and Drug Abuse Patient Records regulations: The Federal rules restrict any use of the information to criminally investigate or prosecute any alcohol or drug abuse patient.[facility] Care Teams (unrecognized sec tion and content) [employer] Team Member Relationship Specialty Start Date End Date Shasta Herrera DO [address] [place] [address] PCP - General Family Medicine 10/27/17 Reason for Visit (unrecogniz ed section and content) FOR RECORDS PERTAINING TO PATIENTS WHO ARE OR HAVE BEEN ENROLLED IN A CHEMICAL DEPENDENCY/SUBSTANCEABUSE PROGRAM, SOME INFORMATION MAY BE OMITTED. This clinical summary was aggregated from multiple sources. Caution should be exercised in using it in the provision of clinical care. This summary normalizes information from multiple sources, and as a consequence, information in this document may materially change the coding, format and clinical context of patient data. In addition, data may be omitted in some cases. CLINICAL DECISIONS SHOULD BE BASED ON THE PRIMARY CLINICAL RECORDS. [facility] [employer] [facility]. provides no warranty or guarantee of the accuracy or completeness of information in this document.
[2023-03-11 11:09] LABS: HPV APTIMA, High Risk Negative (Negative)
== END | disposition home or self-care (01) ==
PROVIDERS: Referring Provider Obstetrics & Gynecology; Visit Provider Obstetrics & Gynecology
DX: Z12.4 Encounter for screening for malignant neoplasm of cervix (principal)
CPT/HCPCS: 87624; 88175; G0145

== ENCOUNTER → 2024-11-09 | Outpatient (CLI) | payer OTHER, SELFPAY ==
--- NOTE | 2024-11-09 14:00 | BI_ITS ---
EXAM: DIAG MAMM W/CAD, BILAT 11/09/2024 CLINICAL HISTORY: F, Age 39 y/o , RIGHT BREAST LUMP. History of aunt with breast cancer. TECHNIQUE: Procedure Code: [id number] Modality: MG Procedure: DIAG MAMM W/CAD, BILAT. COMPARISON: Baseline study. FINDINGS: TISSUE DENSITY: The breasts are extremely dense, which lowers the sensitivity of mammography. Bilateral Breast Mammographic Findings: No significant masses, calcifications or other abnormalities are identified. No suspicious masses, areas of developing architectural distortion, or suspicious calcifications. With the patient's history of a palpable lump in the inferior medial aspect of the right breast, targeted sonographic correlation recommended. BI/DIAG MAMM W/CAD, BILAT IMPRESSION: No significant abnormality is seen. OVERALL FINAL ASSESSMENT BI-RADS 0: INCOMPLETE - NEED ADDITIONAL IMAGING EVALUATION. RECOMMENDATION: Ultrasound Recommended A letter with findings and recommendations will be mailed to the patient. Reading Location: [facility]
--- NOTE | 2024-11-09 15:00 | US_ITS ---
PROCEDURE: BREAST LIMITED UNILATERAL 11/09/2024 REASON FOR EXAM: F, Age 39 y/o , RIGHT BREAST LUMP COMPARISON: Prior mammogram done earlier in the day.. TECHNIQUE: Procedure Code: USBRSTLIMIT Modality: US Procedure: BREAST LIMITED UNILATERAL. Targeted imaging of the lower inner quadrant of the right breast was performed. FINDINGS: Fibroglandular tissue. No sonographic abnormality is seen. US/Breast Limited Unilateral IMPRESSION: No sonographic abnormality is seen. BI-RADS 1: NEGATIVE RECOMMENDATION: Routine annual follow-up in 1 Year Reading Location: [id number]
== END | disposition home or self-care (01) ==
LOC: OPBI 13:52
PROVIDERS: PCP Family Medicine; Referring Provider Obstetrics & Gynecology; Visit Provider Obstetrics & Gynecology
DX: N63.14 Unspecified lump in the right breast, lower inner quadrant (principal)
CPT/HCPCS: 76642; 77062; 77066; G0279

== ENCOUNTER → 2025-01-01 | Outpatient (CLI) | payer OTHER, SELFPAY ==
--- NOTE | 2025-01-01 15:34 | US_ITS ---
PROCEDURE: US/Thyroid
== END | disposition home or self-care (01) ==
LOC: US 15:33
PROVIDERS: PCP Family Medicine; Referring Provider Family Medicine; Visit Provider Family Medicine
DX: E07.9 Disorder of thyroid, unspecified (principal)
CPT/HCPCS: 76536